=== PATIENT | male | born 1960 | race Caucasian/White ===

== ENCOUNTER 2016-05-26 20:10 | Emergency (ER) | payer SELFPAY ==
[~2016-05-26] VITALS: Ht 188 cm; Wt 98.0 kg
[~2016-05-26 20:10] MED LIST: HYDR7.5T32 OR; LOMO PO; METO5TAB PO; MORP10IN2 PO; ULTR50TA PO
[2016-05-26 20:14] VITALS: BP 117/78; PULSE 82; RESP 20; TEMP 98.4; O2SAT 96
--- NOTE | 2016-05-26 20:44 | PD ---
HPI Chief Complaint: Musculoskeletal Complaint Time Seen by Provider: 20:33 Travel History International Travel<30 days: No Contact w/Intl Traveler<30days: No Traveled to known affect area: No History of Present Illness HPI The patient is a 55-year-old male that complains of right hip pain for a month. It does not hurt to flex, extend or twist his hip, it hurts with weightbearing. He denies any trauma. 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 He says the pain is not just in the hip, and also goes down the femur to the knee. He denies any other pain. [facility] Past Medical History Diminished Hearing: No Social History Alcohol Use: No Tobacco Use: Yes (/ PPD) Substance Use: No Allergies-Medications (Allergen,Severity, Reaction): Coded Allergies: No Known Allergies (Verified , 05/26/16) Reported Meds & Prescriptions Reported Meds & Active Scripts Active No Active Prescriptions or Reported Medications Review of Systems Except as stated in HPI: all other systems reviewed are Neg Physical Exam Narrative GENERAL: The patient is alert, oriented 3 in moderate apparent distress with his hip pain. He is not in any distress at this time, he only has pain with weightbearing. His vital signs are normal. SKIN: Focused skin assessment warm/dry. HEAD: Atraumatic. Normocephalic. EYES: Pupils equal and round. No scleral icterus. No injection or drainage. ENT: No nasal bleeding or discharge. Mucous membranes pink and moist. NECK: Trachea midline. No JVD. CARDIOVASCULAR: Regular rate and rhythm. No murmur appreciated. RESPIRATORY: No accessory muscle use. Clear to auscultation. Breath sounds equal bilaterally. GASTROINTESTINAL: Abdomen soft, non-tender, nondistended. Hepatic and splenic margins not palpable. MUSCULOSKELETAL: No obvious deformities. No clubbing. No cyanosis. No edema. There is no tenderness of the hip. Internal/external rotation, flexion and extension cause no pain. Weightbearing does cause pain. NEUROLOGICAL: Awake and alert. No obvious cranial nerve deficits. Motor grossly within normal limits. Normal speech. PSYCHIATRIC: Appropriate mood and affect; insight and judgment normal. Data Data Last Documented VS Vital Signs Date Time Temp Pulse Resp B/P Pulse Ox O2 Delivery O2 Flow Rate FiO2 05/26/16 20:14 98.4 82 20 117/78 96 Orders Femur (Ap & Lat/2vws) (05/26/16 20:44) Hip, Uni(Ap&Lat) W Ap Pelvis (05/26/16 20:44) Ketorolac Inj (Toradol Inj) (05/26/16 21:45) MDM Medical Decision Making Medical Screen Exam Complete: Yes Emergency Medical Condition: Yes Medical Record Reviewed: Yes Interpretation(s) X-rays of the hip show degenerative changes involving the lower lumbar spine but no acute fracture dislocation. X-rays of the femur show no acute fracture dislocation but do show mild degenerative changes involving the right patellofemoral and femoral tibial joints. Differential Diagnosis Arthritis hip, septic jointhighly unlikely, muscle strain Narrative Course The patient has no fracture but has mild arthritis around the hip joint. Plan: The patient will be given Motrin, 800 mg 3 times daily and the patient will rest and avoid weightbearing. Diagnosis Primary Impression: Right hip pain Additional Impression: Arthritis of right hip Additional Instructions: As we discussed, rest is probably the most important part of the treatment. Motrin should be taken regularly for its anti-inflammatory effect. This is one tablet 3 times daily. Follow-up with your primary care physician. Med/Other Pt SpecificInfo: Prescription(s) given Scripts Ibuprofen 800 Mg Wpl334 Mg PO Q8H #44 TAB Ref 0 Prov:Jacky Evans MD 05/26/16 Disposition: 01 DISCHARGE HOME Condition: Stable Jacky Evans MD May 26, 2016 20:44
--- NOTE | 2016-05-26 21:44 | RADHPO ---
EXAM DATE/TIME: 05/26/2016 20:52 [facility] COMPARISON: No previous studies available for comparison. INDICATIONS : Right femur pain for 1 month with no known injury MEDICAL HISTORY : None. SURGICAL HISTORY : Right total hip replacement ENCOUNTER: Initial ACUITY: 1 month PAIN SCORE: 7/10 LOCATION: Right entire femur FINDINGS: There is no acute fracture or dislocation of the right femur. A right hip replacement has been perfo rmed and the prosthesis is in good position. Mild degenerative changes are noted involving the goode lofemoral and femoral tibial joints. There is cortical irregularity involving the proximal and midsh aft medially consistent with possible periosteal reaction or exostosis. Clinical correlation is nata mmended. CONCLUSION: 1. No acute fracture or dislocation of the right femur. 2. Mild degenerative changes involving the right patellofemoral and femoral tibial joints. 3. Focal cortical irregularity within the proximal to midshaft medially consistent with periosteal r eaction or possible exostosis. Micah Luque MD on May 26, 2016 at 21:38 Board Certified Radiologist. This report was verified electronically.
[2016-05-26] MEDS ORDERED: KETOROLAC TROMETHAMINE 60 MG/2 ML (IM) VIAL IM ONE (21:45)
--- NOTE | 2016-05-26 21:45 | RADHPO ---
EXAM DATE/TIME: 05/26/2016 20:54 [facility] COMPARISON: No previous studies available for comparison. INDICATIONS : Right femur pain for 1 month with no known injury MEDICAL HISTORY : None. SURGICAL HISTORY : Right total hip replacement ENCOUNTER: Initial ACUITY: 1 month PAIN SCORE: 7/10 LOCATION: Right entire hip FINDINGS: The patient is status post right hip replacement with prosthesis in good position. Degenerative vazquez es are noted involving the visualized portion of the lower lumbar spine. There is no acute fracture or dislocation of the pelvis or right hip. CONCLUSION: 1. Degenerative changes involving the lower lumbar spine. 2. No acute fracture or dislocation. Micah Luque MD on May 26, 2016 at 21:41 Board Certified Radiologist. This report was verified electronically.
[2016-05-26] MEDS ORDERED: IBUP800T23 PO (21:57)
[2016-05-26 22:10] VITALS: BP 120/74
== END 2016-05-26 22:11 | disposition home or self-care (01) ==
LOC: PHEFT 20:10
DX: M13.851 Other specified arthritis, right hip (principal); F17.200 Nicotine dependence, unspecified, uncomplicated
CPT/HCPCS: 73502; 73552; 96372; 99283; J1885

== ENCOUNTER 2017-02-17 17:42 | Emergency (ER) | payer SELFPAY ==
[~2017-02-17 17:42] MED LIST changes: -HYDR7.5T32 OR; +IBUP1TAB7 PO; -LOMO PO; -METO5TAB PO; -MORP10IN2 PO; -ULTR50TA PO
[2017-02-17 17:45] VITALS: BP 136/88; PULSE 80; RESP 20; TEMP 99.2
[2017-02-17] MEDS ORDERED: BACT800T5 PO (18:07)
[2017-02-17] MEDS ORDERED: CEPH-460 PO (18:07)
--- NOTE | 2017-02-17 18:12 | PD ---
HPI Chief Complaint: Skin Problem Time Seen by Provider: 17:58 Travel History International Travel<30 days: No Contact w/Intl Traveler<30days: No Traveled to known affect area: No History of Present Illness HPI 56-year-old male presents to the ED for evaluation of approximately 24-hour history of painful reddened area of the posterior right thigh. Patient can identify no acute injury. He states that he noticed it yesterday morning and has gotten worse. He denies fevers, chills, nausea, vomiting, numbness, tingling, weakness, limitation of range of motion of the extremity, history of MRSA. No treatment attempt at home. PFSH Past Medical History Diminished Hearing: No Social History Alcohol Use: No Tobacco Use: No (1/2 PPD) Substance Use: No Allergies-Medications (Allergen,Severity, Reaction): Coded Allergies: No Known Allergies (Verified Allergy, Unknown, 02/17/17) Reported Meds & Prescriptions Reported Meds & Active Scripts Active Keflex (Cephalexin) 500 Mg Cap 500 Mg PO Q6H 7 Days Bactrim DS (Sulfamethoxazole-Trimethoprim) 800-160 Mg Tab 1 Tab PO BID Review of Systems Except as stated in HPI: all other systems reviewed are Neg Physical Exam Narrative GENERAL: Well-nourished, well-developed white male in no acute distress. SKIN: Focused skin assessment warm/dry. Deeply tanned. Tattoos noted. SKIN: There is an indurated area in the right posterior thigh which measures about 2 cm in diameter. It is fluctuant but there is no pointing or drainage. There is a zone of inflammation around it but no lymphangitis. HEAD: Normocephalic. EYES: No scleral icterus. No injection or drainage. NECK: Supple, trachea midline. No JVD or lymphadenopathy. CARDIOVASCULAR: Regular rate and rhythm without murmurs, gallops, or rubs. RESPIRATORY: Breath sounds equal bilaterally. No accessory muscle use. GASTROINTESTINAL: Abdomen soft, non-tender, nondistended. MUSCULOSKELETAL: No cyanosis, or edema. BACK: Nontender without obvious deformity. No CVA tenderness. Data Data Last Documented VS Vital Signs Date Time Temp Pulse Resp B/P (MAP) Pulse Ox O2 Delivery O2 Flow Rate FiO2 02/17/17 17:45 99.2 80 20 136/88 (104) Orders Orders Wound Culture And Gram Stain (02/17/17 18:05) Lidocai-Epi 0.5%-1:200,000 Inj (Xylocain (02/17/17 18:15) Ed Discharge Order (02/17/17 18:30) [facility] Medical Decision Making Medical Screen Exam Complete: Yes Emergency Medical Condition: Yes Differential Diagnosis Folliculitis versus abscess versus cellulitis versus other Narrative Course 56-year-old male presents to the ED for evaluation of approximately 24-hour history of painful reddened area of the posterior right thigh. Patient can identify no acute injury. He states that he noticed it yesterday morning and has gotten worse. Vitals reviewed. Exam consistent with abscess. I&D was performed. See my procedure note for details. Patient prescribed Bactrim and Keflex, given detailed wound care instructions. We discussed reasons to return to the ED. He indicated understanding of instructions and is agreeable a care plan. He is stable and discharged home. Procedures Procedure Narrative INCISION AND DRAINAGE OF ABSCESS: The area was prepped and was sterilely draped. A subcutaneous wheal of 0.5% Xylocaine with epinephrine with a total number 20 mL was used to anesthetize the area properly. A number 11 scalpel was used to make a 0.75-cm incision across the area of the abscess. The abscess was drained, complex loculations were broken down, and irrigated with normal saline. Cultures were obtained. Sterile dressing applied. Patient advised to keep wound clean, dry and covered. Diagnosis Primary Impression: Abscess of right leg Referrals: Primary Care Physician Patient Instructions: Abscess Incision and Drainage (DC), General Instructions Additional Instructions: Keep the dressing on for 24 hours. After that keep the wound clean, dry and covered. Warm compresses applied a couple times a day will help to bring any pus to the surface. DO NOT SQUEEZE THE AREA!! Take antibiotics as prescribed until every pill is gone. Follow up with primary care provider. Return to the ED for worsening symptoms or any urgent or emergent medical condition. Med/Other Pt SpecificInfo: Prescription(s) given Scripts Cephalexin (Keflex) 500 Mg Cap 500 MG PO Q6H for Infection for 7 Days, #28 CAP 0 Refills Prov: Juan A George MD 02/17/17 Sulfamethoxazole-Trimethoprim (Bactrim DS) 800-160 Mg Tab 1 TAB PO BID for Infection, #14 TAB 0 Refills Prov: Juan A George MD 02/17/17 Disposition: 01 DISCHARGE HOME Condition: Stable Hedy Arroyo Feb 17, 2017 18:12
[2017-02-17] MEDS ORDERED: LIDOCAINE 0.5%/EPINEPHrine 1:200,000 SOLN 50 ML VIAL INFIL ONE (18:15)
[2017-02-17] MEDS ORDERED: LIDOCAINE 1%/EPINEPHrine 1:100,000 SOLN 20 ML VIAL INFIL ONE (18:15)
== END 2017-02-17 18:40 | disposition home or self-care (01) ==
LOC: PHEFT 17:42
DX: L02.415 Cutaneous abscess of right lower limb (principal); B95.62 Methicillin resistant Staphylococcus aureus infection as the cause of diseases classified elsewhere; Z16.19 Resistance to other specified beta lactam antibiotics; Z16.11 Resistance to penicillins; Z16.23 Resistance to quinolones and fluoroquinolones
CPT/HCPCS: 10060; 86403; 87070; 87186; 87205

== ENCOUNTER 2017-03-14 16:50 | Emergency (ER) | payer OTHER ==
[~2017-03-14] VITALS: Ht 188 cm; Wt 100.0 kg
[~2017-03-14 16:50] MED LIST changes: +BACT800T5 PO; +CEPH-460 PO; -IBUP1TAB7 PO
[2017-03-14 16:54] VITALS: BP 175/87; PULSE 89; RESP 18; TEMP 99.3; O2SAT 98
[2017-03-14] MEDS ORDERED: SODIUM CHLORIDE 0.9% FLUSH 10 ML FLUSH IV FLUSH PRN (17:15)
[2017-03-14] MEDS ORDERED: MORPHINE SULFATE 4 MG/ML INJ IV PUSH ONE (17:15)
--- NOTE | 2017-03-14 17:20 | PD ---
HPI Chief Complaint: Pain: Acute or Chronic Time Seen by Provider: 17:09 Travel History International Travel<30 days: No Contact w/Intl Traveler<30days: No Traveled to known affect area: No History of Present Illness HPI this is a 56-year-old male presents emergency department for evaluation of right lower extremity numbness and tingling feelings like fell sleep. 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 Denies any weakness but is certainly walking antalgic gait. He is urinated the event is having trouble. Denies any pain in his back. Recent history of an abscess drained from his lateral thigh and has no some redness and swelling coming up on his medial thigh. Denies any previous symptoms in the past denies any fever. States symptoms are severe, context as above, location as above, radiation as above. PFSH Past Medical History Medical History: Denies Significant Hx Diminished Hearing: No Social History Alcohol Use: No Tobacco Use: No (/2 PPD) Substance Use: No Allergies-Medications (Allergen,Severity, Reaction): Coded Allergies: No Known Allergies (Verified Allergy, Unknown, 03/14/17) Reported Meds & Prescriptions Reported Meds & Active Scripts Active Ultram (Tramadol HCl) 50 Mg Tab 50 Mg PO Q6H PRN Doxycycline Hyclate 100 Mg Cap 100 Mg PO BID Review of Systems Except as stated in HPI: all other systems reviewed are Neg Physical Exam Narrative GENERAL: Well-developed well-nourished, appears uncomfortable. SKIN: There is a cellulitis on the medial fine, no discernible abscess appreciated but there is some mild swelling according to patient. Difficult examination secondary to patient cooperation secondary to pain. HEAD: Atraumatic. Normocephalic. EYES: Pupils equal and round. No scleral icterus. No injection or drainage. ENT: No nasal bleeding or discharge. Mucous membranes pink and moist. NECK: Trachea midline. No JVD. CARDIOVASCULAR: Regular rate and rhythm. No murmur appreciated. RESPIRATORY: No accessory muscle use. Clear to auscultation. Breath sounds equal bilaterally. GASTROINTESTINAL: Abdomen soft, non-tender, nondistended. Hepatic and splenic margins not palpable. MUSCULOSKELETAL: No obvious deformities. No clubbing. No cyanosis. No edema. No midline CT or L-spine tenderness, 5 out of 5 strength in extension at the knee, plantar flexion, dorsiflexion of the foot. DTRs are 2+ bilateral equal in bilateral lower extremities at the patella and Achilles. Sensation is intact to light touch over L4 L5 S1 but there is some reported subjective differences between the left and the right. NEUROLOGICAL: Awake and alert. No obvious cranial nerve deficits. Motor grossly within normal limits. Normal speech. PSYCHIATRIC: Appropriate mood and affect; insight and judgment normal. Data Data Last Documented VS Vital Signs Date Time Temp Pulse Resp B/P (MAP) Pulse Ox O2 Delivery O2 Flow Rate FiO2 03/14/17 19:42 74 16 121/61 (81) 99 03/14/17 17:21 Room Air 03/14/17 16:54 99.3 Orders Orders Basic Metabolic Panel (Bmp) (03/14/17 17:15) Complete Blood Count With Diff (03/14/17 17:15) Iv Access Insert/Monitor (03/14/17 17:15) Ecg Monitoring (03/14/17 17:15) Oximetry (03/14/17 17:15) Morphine Inj (Morphine Inj) (03/14/17 17:15) Sodium Chloride 0.9% Flush (Ns Flush) (03/14/17 17:15) Ct Femur W Iv Contrast (03/14/17 ) Ct Lumb Spine W/O Contrast (03/14/17 ) Iohexol 350 Inj (Omnipaque 350 Inj) (03/14/17 18:12) Ed Discharge Order (03/14/17 19:19) Labs Laboratory Tests Test 03/14/17 17:30 White Blood Count 13.0 TH/MM3 Red Blood Count 5.13 MIL/MM3 Hemoglobin 15.3 GM/DL Hematocrit 47.6 % Mean Corpuscular Volume 92.8 FL Mean Corpuscular Hemoglobin 29.8 PG Mean Corpuscular Hemoglobin Concent 32.1 % Red Cell Distribution Width 13.8 % Platelet Count 193 TH/MM3 Mean Platelet Volume 8.9 FL Neutrophils (%) (Auto) 80.0 % Lymphocytes (%) (Auto) 12.3 % Monocytes (%) (Auto) 4.2 % Eosinophils (%) (Auto) 0.9 % Basophils (%) (Auto) 2.6 % Neutrophils # (Auto) 10.5 TH/MM3 Lymphocytes # (Auto) 1.6 TH/MM3 Monocytes # (Auto) 0.5 TH/MM3 Eosinophils # (Auto) 0.1 TH/MM3 Basophils # (Auto) 0.3 TH/MM3 CBC Comment AUTO DIFF Differential Comment AUTO DIFF CONFIRMED Blood Urea Nitrogen 10 MG/DL Creatinine 1.10 MG/DL Random Glucose 83 MG/DL Calcium Level 8.5 MG/DL Sodium Level 136 MEQ/L Potassium Level 3.9 MEQ/L Chloride Level 101 MEQ/L Carbon Dioxide Level 27.5 MEQ/L Anion Gap 8 MEQ/L Estimat Glomerular Filtration Rate 69 ML/MIN MDM Medical Decision Making Medical Screen Exam Complete: Yes Emergency Medical Condition: Yes Differential Diagnosis Cellulitis, abscess, degenerative disc disease, back fracture, slipped disc, sepsis unlikely. Narrative Course Patient roomed in the emergency department, after pain medicine he is feeling much better. Last [address] 03/14/17 0000 Signed Impressions: Service Date/Time: Tuesday, March 14, 2017 17:45 - CONCLUSION: 1. No acute abnormality. 2. Mild scoliosis. 3. Diffuse mild degenerative changes. Dylan Wilkins Jr., MD Lower Extremity CT 03/14/17 0000 Signed Impressions: Service Date/Time: Tuesday, March 14, 2017 17:51 - CONCLUSION: Mild subcutaneous edema involving the posterior medial thigh. Otherwise, no acute abnormality. Dylan Wilkins Jr., MD Labs are reassuring, will place on antibiotics, holding steroids now given acute infection. Discussed may have indications for MRI as an outpatient in the near future. Needs to follow-up the primary care physician, discussed return to ED criteria including red flags for cauda equina syndrome. Discussed symptomatic management. He stable for discharge. Diagnosis Primary Impression: Sciatica Additional Impression: Cellulitis Med/Other Pt SpecificInfo: Prescription(s) given Scripts Tramadol (Ultram) 50 Mg Tab 50 MG PO Q6H Y for PAIN, #15 TAB 0 Refills Prov: Micah Adams MD 03/14/17 Doxycycline Hyclate (Doxycycline Hyclate) 100 Mg Cap 100 MG PO BID for Infection, #20 CAP 0 Refills Prov: Micah Adams MD 03/14/17 Disposition: DISCHARGE HOME Condition: Stable Micah Adams MD Mar 14, 2017 17:20
[2017-03-14 17:21] VITALS: RESP 16; O2SAT 98
[2017-03-14 17:43] LABS: AUTOMATED NEUTROPHIL # 10.5 TH/MM3 (1.8-7.7); BASOPHIL # 0.3 TH/MM3 (0-0.2); BASOPHIL % 2.6 % (0.0-2.0); EOSINOPHIL # 0.1 TH/MM3 (0-0.4); EOSINOPHIL % 0.9 % (0.0-4.0); HEMATOCRIT 47.6 % (39.0-51.0); HEMOGLOBIN 15.3 GM/DL (13.0-17.0); LYMPH % 12.3 % (9.0-44.0); LYMPHOCYTE # 1.6 TH/MM3 (1.0-4.8); MEAN CELL VOLUME 92.8 FL (80.0-100.0); MEAN CORPUSCULAR HEMOGLOBIN 29.8 PG (27.0-34.0); MEAN CORPUSCULAR HGB CONC 32.1 % (32.0-36.0); MEAN PLATELET VOLUME 8.9 FL (7.0-11.0); MONO % 4.2 % (0.0-8.0); MONOCYTE # 0.5 TH/MM3 (0-0.9); PLATELET COUNT 193 TH/MM3 (150-450); RED BLOOD COUNT 5.13 MIL/MM3 (4.50-5.90); RED CELL DISTRIBUTION WIDTH 13.8 % (11.6-17.2)
[2017-03-14 17:48] LABS: BICARBONATE 27.5 MEQ/L (21.0-32.0); CALCIUM 8.5 MG/DL (8.5-10.1)
[2017-03-14 17:52] LABS: CREATININE 1.1 MG/DL (0.60-1.30)
[2017-03-14] MEDS ORDERED: IOHEXOL 350 MG/ML 10 ML VIAL (for RAD DIAG) IVCONTRAST ONE (18:12)
--- NOTE | 2017-03-14 18:22 | RADRPT ---
EXAM DATE/TIME: 03/14/2017 17:51 [facility] COMPARISON: No previous studies available for comparison. INDICATIONS : Sharp pain in right femur with heaviness and numbness feeling. Pain in inner thigh area with redness and swelling. Evaluate for deep abscess. IV CONTRAST: 95 cc Omnipaque 350 (iohexol) IV RADIATION DOSE: 15.63 CTDIvol (mGy) MEDICAL HISTORY : None SURGICAL HISTORY : Right hip repair. ENCOUNTER: Initial ACUITY: 1 day PAIN SCALE: 3/10 LOCATION: Right femur TECHNIQUE: Volumetric scanning of the femur was performed. Using automated exposure control and adjustment of t he mA and/or kV according to patient size, radiation dose was kept as low as reasonably achievable to obtain optimal diagnostic quality images. DICOM format image data is available electronically for review and comparison. FINDINGS: BONES: A right total hip prosthesis in good position. No lucency surrounding the device. Mild enthesopathic changes involving the medial mid femoral diaphysis. No evidence of fracture. Alignment is within nor mal limits. JOINTS: No evidence of joint narrowing or effusion. SOFT TISSUES: Muscles, tendons and neurovascular structures unremarkable. No evidence of mass, organized fluid bhaskar ection, or foreign body. There is mild subcutaneous edema involving the posterior medial thigh. CONCLUSION: Mild subcutaneous edema involving the posterior medial thigh. Otherwise, no acute abnormality. Dylan Wilkins Jr., MD on March 14, 2017 at 18:15 Board Certified Radiologist. This report was verified electronically.
--- NOTE | 2017-03-14 18:34 | RADRPT ---
EXAM DATE/TIME: 03/14/2017 17:45 [facility] COMPARISON: No previous studies available for comparison. INDICATIONS : Sharp pain with heaviness and numbness feeling. RADIATION DOSE: 36.03 CTDIvol (mGy) MEDICAL HISTORY : None SURGICAL HISTORY : right hip repair. ENCOUNTER: Initial ACUITY: 1 day PAIN SCALE: 3/10 LOCATION: spine TECHNIQUE: Volumetric scanning of the lumbar spine was performed. Multiplanar reconstructions in the sagittal, coronal and oblique axial planes were performed. Using automated exposure control and adjustment of the mA and/or kV according to patient size, radiation dose was kept as low as reasonably achievable t o obtain optimal diagnostic quality images. DICOM format image data is available electronically for review and comparison. FINDINGS: VERTEBRAE: Normal vertebral body height. ALIGNMENT: There is a scoliotic curvature with concavity towards the patient's right centered at L2-L3. A 2.6 cm cyst is seen involving the upper pole of the right kidney. Calcified plaque involving the ab dominal aorta. T12-L1: There is disc space narrowing and broad-based disc osteophyte complex. No central canal stenosis. Gladys ral foramina are patent. L1-L2: There is disc space narrowing and broad-based disc osteophyte complex. No central canal stenosis. Gladys ral foramina are patent. L2-L3: There is disc space narrowing and broad-based disc osteophyte complex. No central canal stenosis. Gladys ral foramina are patent. L3-L4: There is disc space narrowing and broad-based disc osteophyte complex. No central canal stenosis. Gladys ral foramina are patent. L4-L5: There is disc space narrowing with a right paracentral disc protrusion. This narrows the right latera l recess slightly. No central canal stenosis. Narrowing of the neural foramina bilaterally partly due to bony hypertrophy of the facets. L5-S1: There is disc space narrowing with a central bulge. No central canal stenosis or lateral recess encro achment. Narrowing of the neural foramina bilaterally partly due to bony hypertrophy of the facets CONCLUSION: 1. No acute abnormality. 2. Mild scoliosis. 3. Diffuse mild degenerative changes. Dylan Wilkins Jr., MD on March 14, 2017 at 18:26 Board Certified Radiologist. This report was verified electronically.
[2017-03-14] MEDS ORDERED: TRAM50 PO (19:18)
[2017-03-14] MEDS ORDERED: DOXY100C PO (19:18)
[2017-03-14 19:42] VITALS: BP 121/61
[2017-03-20] MEDS ORDERED: CLIN300C5 PO (18:18)
== END 2017-03-14 19:44 | disposition home or self-care (01) ==
LOC: PHED 16:50
DX: M54.30 Sciatica, unspecified side (principal); L03.90 Cellulitis, unspecified; F17.210 Nicotine dependence, cigarettes, uncomplicated; X50.9XXA Other and unspecified overexertion or strenuous movements or postures, initial encounter
CPT/HCPCS: 72131; 73701; 80048; 85025; 96374; 99285; J2270; Q9967

== ENCOUNTER 2017-03-20 17:46 | Emergency (ER) | payer OTHER | END 2017-03-20 18:21 | disposition home or self-care (01) | LOC: PHEFT 17:46 | DX: L02.415 Cutaneous abscess of right lower limb (principal) | CPT/HCPCS: 10060; 99283-25 ==

== ENCOUNTER 2017-04-04 20:34 | Emergency (ER) | payer OTHER ==
[~2017-04-04 20:34] MED LIST changes: -BACT800T5 PO; -CEPH-460 PO; +CLIN300C5 PO; +DOXY100C PO
[2017-04-04 22:22] VITALS: BP 140/81; PULSE 83; RESP 20; TEMP 99.3; O2SAT 98
[2017-04-04] MEDS ORDERED: VANCOMYCIN INJ 1,500 MG in SODIUM CHLORID 0.9% 500 ML INJ 500 ML IV ONE (23:00)
[2017-04-04] MEDS ORDERED: KETOROLAC TROMETHAMINE 30 MG/ML (IVP) VIAL IV PUSH ONE (23:00)
--- NOTE | 2017-04-04 23:03 | PD ---
HPI Chief Complaint: Skin Problem Time Seen by Provider: 22:49 Travel History International Travel<30 days: No Contact w/Intl Traveler<30days: No Traveled to known affect area: No History of Present Illness HPI 56yo M with no significant PMH presents to the ED with c/o right posterior thigh pain. Pt has had multiple abscess in this area and has been seen in the ED multiple times for this. He said that the redness is getting worse and pain has not improved. Pt was last seen here 03/20/17 and had I&D completed and discharged with clindamycin for 7 days. Pt said he finished 2 days ago. Pt also had I&D and discharge with keflex and bactrim on 02/17/17. Pt denies any fever, trauma, chest pain, sob, n/v, abdominal pain, focal weakness or numbness. 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 PFSH Past Medical History Diminished Hearing: No Social History Alcohol Use: No Tobacco Use: No (/2 PPD) Substance Use: No Allergies-Medications (Allergen,Severity, Reaction): Coded Allergies: No Known Allergies (Verified Allergy, Unknown, 03/20/17) Reported Meds & Prescriptions Reported Meds & Active Scripts Active Clindamycin (Clindamycin HCl) 300 Mg Cap 300 Mg PO Q6H 7 Days Doxycycline Hyclate 100 Mg Cap 100 Mg PO BID Review of Systems Except as stated in HPI: all other systems reviewed are Neg Physical Exam Narrative GENERAL: 56yo M in mild distress. SKIN: Focused skin assessment warm/dry. HEAD: Atraumatic. Normocephalic. EYES: Pupils equal and round. No scleral icterus. No injection or drainage. ENT: No nasal bleeding or discharge. Mucous membranes pink and moist. NECK: Trachea midline. No JVD. CARDIOVASCULAR: Regular rate and rhythm. No murmur appreciated. RESPIRATORY: No accessory muscle use. Clear to auscultation. Breath sounds equal bilaterally. GASTROINTESTINAL: Abdomen soft, non-tender, nondistended. MUSCULOSKELETAL: Right posterior thigh erythema 18cm by 15cm with central induration. No fluctuance yet. NEUROLOGICAL: Awake and alert. No obvious cranial nerve deficits. Motor grossly within normal limits. Normal speech. PSYCHIATRIC: Appropriate mood and affect; insight and judgment normal. Data Data Last Documented VS Vital Signs Date Time Temp Pulse Resp B/P (MAP) Pulse Ox O2 Delivery O2 Flow Rate FiO2 04/04/17 22:22 99.3 83 20 140/81 (100) 98 Orders Orders Complete Blood Count With Diff (04/04/17 22:55) Basic Metabolic Panel (Bmp) (04/04/17 22:55) Lactic Acid Sepsis Protocol (04/04/17 22:55) Prothrombin Time / Inr (Pt) (04/04/17 22:55) Act Partial Throm Time (Ptt) (04/04/17 22:55) Blood Culture (04/04/17 22:55) Ketorolac Inj (Toradol Inj) (04/04/17 23:00) Vancomycin Inj (Vancomycin Inj) (04/04/17 23:00) Morphine Inj (Morphine Inj) (04/05/17 00:15) Labs Laboratory Tests Test 04/04/17 23:25 White Blood Count 8.3 TH/MM3 Red Blood Count 4.57 MIL/MM3 Hemoglobin 14.1 GM/DL Hematocrit 41.6 % Mean Corpuscular Volume 91.2 FL Mean Corpuscular Hemoglobin 30.8 PG Mean Corpuscular Hemoglobin Concent 33.8 % Red Cell Distribution Width 13.6 % Platelet Count 211 TH/MM3 Mean Platelet Volume 9.0 FL Neutrophils (%) (Auto) 64.0 % Lymphocytes (%) (Auto) 23.0 % Monocytes (%) (Auto) 6.1 % Eosinophils (%) (Auto) 3.5 % Basophils (%) (Auto) 3.4 % Neutrophils # (Auto) 5.3 TH/MM3 Lymphocytes # (Auto) 1.9 TH/MM3 Monocytes # (Auto) 0.5 TH/MM3 Eosinophils # (Auto) 0.3 TH/MM3 Basophils # (Auto) 0.3 TH/MM3 CBC Comment DIFF FINAL Differential Comment Prothrombin Time 10.8 SEC Prothromb Time International Ratio 1.1 RATIO Activated Partial Thromboplast Time 25.5 SEC Blood Urea Nitrogen 12 MG/DL Creatinine 1.00 MG/DL Random Glucose 102 MG/DL Calcium Level 8.4 MG/DL Sodium Level 139 MEQ/L Potassium Level 4.0 MEQ/L Chloride Level 106 MEQ/L Carbon Dioxide Level 28.1 MEQ/L Anion Gap 5 MEQ/L Estimat Glomerular Filtration Rate 77 ML/MIN Lactic Acid Level 0.7 mmol/L MDM Medical Decision Making Medical Screen Exam Complete: Yes Emergency Medical Condition: Yes Differential Diagnosis Cellulitis vs. recurrent abscess Narrative Course 56yo M with right posterior thigh redness and recurrent abscess. The abscess is not ready to be I&D today yet. There is induration but no fluctuance yet. Pt is nontoxic appearing and has no fever or vomiting. No system complaints. Vital signs normal. Labs reviewed, no leukocytosis. Lactic acid normal at 0.7. BMP unremarkable. Pt given vancomycin IV. Pt given toradol and morphine with improvement of pain. I marked the area of erythema and instructed pt to return in 2 days if symptoms worsen. Pt to follow up with primary care physician in 1-2 days. Diagnosis Primary Impression: Cellulitis of right leg Patient Instructions: General Instructions Departure Forms: Tests/Procedures Additional Instructions: Please follow up with your primary care physician in 1-2 days. Return to the ED if symptoms worsen. Med/Other Pt SpecificInfo: Prescription(s) given Scripts Acetaminophen (Tylenol) 325 Mg Tab 650 MG PO Q6H Y for PAIN SCALE 1 TO 4, #20 TAB 0 Refills Prov: Carolyne Hayden DO 04/05/17 Doxycycline Hyclate (Doxycycline Hyclate) 100 Mg Cap 100 MG PO BID for Infection, #20 CAP 0 Refills Prov: Carolyne Hayden DO 04/05/17 Sulfamethoxazole-Trimethoprim (Bactrim DS) 800-160 Mg Tab 1 TAB PO BID for Infection, #14 TAB 0 Refills Prov: Carolyne Hayden DO 04/05/17 Disposition: 01 DISCHARGE HOME Condition: Stable Carolyne Hayden DO Apr 04, 2017 23:03
[2017-04-04 23:34] LABS: AUTOMATED NEUTROPHIL # 5.3 TH/MM3 (1.8-7.7); BASOPHIL # 0.3 TH/MM3 (0-0.2); BASOPHIL % 3.4 % (0.0-2.0); EOSINOPHIL # 0.3 TH/MM3 (0-0.4); EOSINOPHIL % 3.5 % (0.0-4.0); HEMATOCRIT 41.6 % (39.0-51.0); HEMOGLOBIN 14.1 GM/DL (13.0-17.0); LYMPHOCYTE # 1.9 TH/MM3 (1.0-4.8); MEAN CELL VOLUME 91.2 FL (80.0-100.0); MEAN CORPUSCULAR HEMOGLOBIN 30.8 PG (27.0-34.0); MEAN CORPUSCULAR HGB CONC 33.8 % (32.0-36.0); MONO % 6.1 % (0.0-8.0); MONOCYTE # 0.5 TH/MM3 (0-0.9); PLATELET COUNT 211 TH/MM3 (150-450); RED BLOOD COUNT 4.57 MIL/MM3 (4.50-5.90); RED CELL DISTRIBUTION WIDTH 13.6 % (11.6-17.2); WHITE BLOOD COUNT 8.3 TH/MM3 (4.0-11.0)
[2017-04-04 23:43] LABS: CALCIUM 8.4 MG/DL (8.5-10.1); INTERNATIONAL NORMALIZED RATIO 1.1 RATIO; PROTHROMBIN TIME - PATIENT 10.8 SEC (9.8-11.6)
[2017-04-04 23:44] LABS: BICARBONATE 28.1 MEQ/L (21.0-32.0)
[2017-04-05] MEDS ORDERED: TYLE325T PO (00:14)
[2017-04-05] MEDS ORDERED: DOXY100C PO (00:14)
[2017-04-05] MEDS ORDERED: BACT800T5 PO (00:14)
[2017-04-05 00:15] VITALS: BP 131/66; PULSE 65; RESP 18; TEMP 98.2; O2SAT 95
[2017-04-05] MEDS ORDERED: MORPHINE SULFATE 2 MG/ML INJ IV PUSH ONE (00:15)
[2017-04-05 01:15] VITALS: BP 111/68; PULSE 64; RESP 16; O2SAT 95
[2017-04-05 02:44] VITALS: BP 128/88; TEMP 98.4
== END 2017-04-05 02:51 | disposition home or self-care (01) ==
LOC: PHED 20:34
DX: L03.115 Cellulitis of right lower limb (principal); F17.210 Nicotine dependence, cigarettes, uncomplicated
CPT/HCPCS: 80048; 83605; 85025; 85610; 85730; 87040; 96365; 96366; 96375; 99283; J1885; J2270; J3370; J7040

== ENCOUNTER 2017-04-07 16:09 | Emergency (ER) | payer OTHER ==
[~2017-04-07] VITALS: Ht 188 cm; Wt 98.0 kg
[~2017-04-07 16:09] MED LIST changes: +BACT800T5 PO; +TYLE325T PO
[2017-04-07 16:17] VITALS: BP 150/81; PULSE 79; RESP 16; TEMP 99.1; O2SAT 97
[2017-04-07] MEDS ORDERED: LIDOCAINE 1%/EPINEPHrine 1:100,000 SOLN 20 ML VIAL INFIL ONE (16:45)
[2017-04-07] MEDS ORDERED: KETOROLAC TROMETHAMINE 60 MG/2 ML (IM) VIAL IM ONE (16:45)
[2017-04-07] MEDS ORDERED: LIDOCAINE 1%/EPINEPHrine 1:100,000 SOLN 30 ML VIAL ONE (16:45)
[2017-04-07] MEDS ORDERED: ACETAMINOPHEN/HYDROcodone 325 MG/5 MG TAB PO ONE (16:45)
[2017-04-07] MEDS ORDERED: TRAM50 PO (17:42)
[2017-04-07] MEDS ORDERED: BACT800T5 PO (17:42)
--- NOTE | 2017-04-07 17:42 | PD ---
HPI Chief Complaint: Skin Problem Time Seen by Provider: 16:36 Travel History International Travel<30 days: No Contact w/Intl Traveler<30days: No Traveled to known affect area: No History of Present Illness HPI 56-year-old male here with abscess to the right posterior thigh. Patient is currently on doxycycline and clindamycin. He denies fever or chills. He was seen several days ago and diagnosed with cellulitis. He was instructed to apply warm compresses and return in several days for possible I&D. Symptom severity is moderate. It aggravated by palpation of the area. Alleviated by OTC Tylenol and ibuprofen. PFSH Past Medical History Medical History: Denies Significant Hx Diminished Hearing: No ?: Not Social History Alcohol Use: No Tobacco Use: No Substance Use: No Allergies-Medications (Allergen,Severity, Reaction): Coded Allergies: No Known Allergies (Verified Allergy, Unknown, 04/07/17) Reported Meds & Prescriptions Reported Meds & Active Scripts Active Bactroban Nasal Oint (Mupirocin Nasal Oint) 2% Oint 1 Applic EACH NARE BID For 5 days. Bactrim DS (Sulfamethoxazole-Trimethoprim) 800-160 Mg Tab 1 Tab PO BID Ultram (Tramadol HCl) 50 Mg Tab 50 Mg PO Q6H PRN Tylenol (Acetaminophen) 325 Mg Tab 650 Mg PO Q6H PRN Doxycycline Hyclate 100 Mg Cap 100 Mg PO BID Bactrim DS (Sulfamethoxazole-Trimethoprim) 800-160 Mg Tab 1 Tab PO BID Clindamycin (Clindamycin HCl) 300 Mg Cap 300 Mg PO Q6H 7 Days Doxycycline Hyclate 100 Mg Cap 100 Mg PO BID Review of Systems Except as stated in HPI: all other systems reviewed are Neg General / Constitutional: No: Fever Physical Exam Narrative GENERAL: Alert and well-appearing 56-year-old male SKIN: Warm and dry. 3.5x3.5cm fluctuant abscess to the right posterior thigh. There is surrounding erythema which is well within the markers that were previously drawn around the cellulitis at his prior visit. HEAD: Normocephalic. EYES: No injection or drainage. NECK: Supple MUSCULOSKELETAL: No cyanosis, or edema. See skin noted above Data Data Last Documented VS Vital Signs Date Time Temp Pulse Resp B/P (MAP) Pulse Ox O2 Delivery O2 Flow Rate FiO2 04/07/17 16:17 99.1 79 16 150/81 (104) 97 Orders Orders Ketorolac Inj (Toradol Inj) (04/07/17 16:45) Acetamin-Hydrocod 325-5 Mg ([place] 5-325 (04/07/17 16:45) Lidocai-Epi 1%-1:100,000 Inj (Xylocaine- (04/07/17 16:45) Lidocai-Epi 1%-1:100,000 Inj (Xylocaine- (04/07/17 16:45) Ed Discharge Order (04/07/17 17:42) [facility] Medical Decision Making Medical Screen Exam Complete: Yes Emergency Medical Condition: Yes Differential Diagnosis Abscess, cellulitis, outpatient treatment failure Narrative Course 56-year-old male here with abscess to the right posterior thigh. Patient is currently on doxycycline and clindamycin. He denies fever or chills. He is nontoxic appearing. He has a large abscess with central fluctuance which was incised and drained at today's visit. He was instructed to return in 2 days for packing removal. Procedures Procedure Narrative INCISION AND DRAINAGE OF ABSCESS: The area was prepped and was sterilely draped. A subcutaneous wheal of 1 % Xylocaine was used to anesthetize the area properly. A number [11] scalpel was used to make a 0.75 -cm incision across the area of the abscess. The abscess was drained, complex loculations were broken down, and irrigated with normal saline. Quarter inch iodoform packing was placed in the wound. Sterile dressing applied. Patient advised to have packing removed in two days. Diagnosis Primary Impression: Abscess Referrals: Primary Care Physician Additional Instructions: Continue antibiotics Packing needs to be removed in 2 days. Change the outside dressing daily. Return if you develop fever, chills, increasing pain or redness. Scripts Mupirocin Nasal Oint (Bactroban Nasal Oint) 2% Oint 1 APPLIC EACH NARE BID for Mgmt Bacterial Infection, #1 TUBE 0 Refills For 5 days. Prov: Trinidad Graves [employer]ARDENING [employer]STRUCTOR 04/07/17 Sulfamethoxazole-Trimethoprim (Bactrim DS) 800-160 Mg Tab 1 TAB PO BID for Infection, #6 TAB 0 Refills Prov: Trinidad Graves GARDENING INSTRUCTOR 04/07/17 Tramadol (Ultram) 50 Mg Tab 50 MG PO Q6H Y for PAIN, #12 TAB 0 Refills Prov: Trinidad Graves 04/07/17 Disposition: 01 DISCHARGE HOME Condition: Stable Trinidad Graves Apr 07, 2017 17:42
[2017-04-07] MEDS ORDERED: BACTOIN EACH NARE (17:44)
== END 2017-04-07 17:54 | disposition home or self-care (01) ==
LOC: PHEFT 16:09
DX: L02.415 Cutaneous abscess of right lower limb (principal)
CPT/HCPCS: 10061; 99283; J1885

== ENCOUNTER 2017-04-10 10:09 | Emergency (ER) | payer OTHER ==
[~2017-04-10] VITALS: Ht 188 cm; Wt 96.0 kg
[~2017-04-10 10:09] MED LIST changes: +BACTOIN EACH NARE; +TRAM50 PO
[2017-04-10 10:14] VITALS: BP 141/76; PULSE 81; RESP 16; TEMP 98.4; O2SAT 97
--- NOTE | 2017-04-10 10:24 | PD ---
HPI Chief Complaint: Wound/Suture/Staple Re-Check Time Seen by Provider: 10:17 Travel History International Travel<30 days: No Contact w/Intl Traveler<30days: No Traveled to known affect area: No History of Present Illness HPI 56-year-old male presents to the emergency department for for evaluation of an abscess to his right posterior thigh. Patient was here 3 days ago and had incision and drainage. He has been taking his antibiotics. He states he went to remove the packing today, but could not find it and became concerned. Patient denies any worsening symptoms. He states as long as he is not passing with the abscess, his pain is 0/10. He reports decreasing redness. Moderate severity. No alleviating factors. PFSH Past Medical History Diminished Hearing: No Social History Alcohol Use: No Tobacco Use: No Substance Use: No Allergies-Medications (Allergen,Severity, Reaction): Coded Allergies: No Known Allergies (Verified Allergy, Unknown, 04/10/17) Reported Meds & Prescriptions Reported Meds & Active Scripts Active Bactroban Nasal Oint (Mupirocin Nasal Oint) 2% Oint 1 Applic EACH NARE BID For 5 days. Bactrim DS (Sulfamethoxazole-Trimethoprim) 800-160 Mg Tab 1 Tab PO BID Ultram (Tramadol HCl) 50 Mg Tab 50 Mg PO Q6H PRN Tylenol (Acetaminophen) 325 Mg Tab 650 Mg PO Q6H PRN Clindamycin (Clindamycin HCl) 300 Mg Cap 300 Mg PO Q6H 7 Days Doxycycline Hyclate 100 Mg Cap 100 Mg PO BID Review of Systems Except as stated in HPI: all other systems reviewed are Neg Physical Exam Narrative GENERAL: Well-nourished, well-developed male patient, ambulatory. Afebrile. SKIN: Focused skin assessment warm/dry. Patient has abscess, status post incision and drainage to right posterior thigh with very mild surrounding erythema. No active drainage. I prodded the incision and was unable to locate any packing. It appears the packing has fallen on on its own. HEAD: Normocephalic. Atraumatic. EYES: No scleral icterus. No injection or drainage. NECK: Supple, trachea midline. No JVD or lymphadenopathy. MUSCULOSKELETAL: No cyanosis, or edema. Data Data Last Documented VS Vital Signs Date Time Temp Pulse Resp B/P (MAP) Pulse Ox O2 Delivery O2 Flow Rate FiO2 04/10/17 10:14 98.4 81 16 141/76 (97) 97 Orders Orders Ed Discharge Order (04/10/17 10:24) MDM Medical Decision Making Medical Screen Exam Complete: Yes Emergency Medical Condition: Yes Medical Record Reviewed: Yes Differential Diagnosis Abscess recheck versus cellulitis versus failed outpatient treatment Narrative Course 56-year-old male presents to the emergency department for evaluation of abscess. He was to fall on his packing today, but cannot find any packing when he went to pull it out. On my exam, I provided the incision with forceps and was unable to locate any packing. It appears the packing has fallen out on its own. The abscess was cleaned and Telfa dressing is applied. Patient is instructed to continue antibiotics and wound care. He is return for any worsening symptoms. The patient was discharged in stable condition with instructions, including return instructions and follow up instructions. Diagnosis Primary Impression: Abscess re-check Referrals: Primary Care Physician call for appointment Patient Instructions: Abscess Follow-up (ED), General Instructions Additional Instructions: Continue antibiotics as directed until gone. Clean twice daily with soap and water and apply over the counter antibiotic ointment. Keep clean and dry. Follow-up with your primary care physician. Return to the emergency department for any acute worsening of symptoms. Med/Other Pt SpecificInfo: No Change to Meds Disposition: 01 DISCHARGE HOME Condition: Stable Leann Espinoza Apr 10, 2017 10:24
== END 2017-04-10 10:30 | disposition home or self-care (01) ==
LOC: PHEFT 10:09
DX: Z48.817 Encounter for surgical aftercare following surgery on the skin and subcutaneous tissue (principal)
CPT/HCPCS: 99281

== ENCOUNTER 2017-06-08 18:30 | Emergency (ER) | payer OTHER ==
[~2017-06-08] VITALS: Ht 188 cm; Wt 99.0 kg
[2017-06-08 18:32] VITALS: BP 163/89; PULSE 88; RESP 18; TEMP 98.7; O2SAT 96
[2017-06-08] MEDS ORDERED: ACETAMINOPHEN/HYDROcodone 325 MG/5 MG TAB PO ONE (19:00)
--- NOTE | 2017-06-08 19:08 | PD ---
HPI Chief Complaint: Skin Problem Time Seen by Provider: 18:47 Travel History International Travel<30 days: No Contact w/Intl Traveler<30days: No Traveled to known affect area: No History of Present Illness HPI 57-year-old male presents emergency department for evaluation of an abscess to the left axilla that has been present for approximately 1 week. Says that over the last couple days has become excruciatingly painful and decided to come to the emergency department today. Says he had 3 abscesses over the last 3 months of his right leg that required treatment. Patient denies history of IV drug use or other illicit drug use. Denies any chronic medical issues except for left shoulder rotator cuff problem. He denies chronic medication use. He denies fevers chills. He has no other complaints today. PFSH Past Medical History Diminished Hearing: No Social History Alcohol Use: No Tobacco Use: No Substance Use: No Allergies-Medications (Allergen,Severity, Reaction): Coded Allergies: No Known Allergies (Verified Allergy, Unknown, 06/08/17) Reported Meds & Prescriptions Reported Meds & Active Scripts Active No Active Prescriptions or Reported Medications Review of Systems Except as stated in HPI: all other systems reviewed are Neg Physical Exam Narrative GENERAL: Well-nourished, well-developed patient. SKIN: Focused skin assessment warm/dry. Left axilla with a 1.5 cm x 1 cm round area of induration with central fluctuance. Mild surrounding erythema without evidence of lymph angiopathic spread. HEAD: Normocephalic. EYES: No scleral icterus. No injection or drainage. NECK: Supple, trachea midline. No JVD or lymphadenopathy. CARDIOVASCULAR: Regular rate and rhythm without murmurs, gallops, or rubs. RESPIRATORY: Breath sounds equal bilaterally. No accessory muscle use. GASTROINTESTINAL: Abdomen soft, non-tender, nondistended. MUSCULOSKELETAL: No cyanosis, or edema. Difficulty moving left shoulder secondary to rotator cuff injury as patient described. BACK: Nontender without obvious deformity. No CVA tenderness. Data Data Last Documented VS Vital Signs Date Time Temp Pulse Resp B/P (MAP) Pulse Ox O2 Delivery O2 Flow Rate FiO2 06/08/17 18:32 98.7 88 18 163/89 (113) 96 Orders Orders Acetamin-Hydrocod 325-5 Mg ([place] 5-325 (06/08/17 19:00) Wound Culture And Gram Stain (06/08/17 19:38) [facility] Medical Decision Making Medical Screen Exam Complete: Yes Emergency Medical Condition: Yes Differential Diagnosis Abscess, cellulitis, erysipelas, hidradenitis suppurativa Narrative Course 57-year-old male presents emergency department evaluation of an abscess to the left axilla. Says he has a history of these in the last 3 months and does not know why he keeps getting these. Vital signs are stable. Physical exam findings consistent with an abscess to the left axilla. Hydrocodone for pain while in the emergency department today. Incision and drainage performed to the left axilla. Wound culture obtained. After review of the EMR appears that patient had MRSA grow from his previous abscess. There was sensitivity to Bactrim. Patient will have Bactrim for outpatient antibiotic use. He is advised to follow-up with his primary care physician in 1-2 days for wound check. Advised to return if he is unable to see his primary care for wound check. Advised to monitor for signs of infection which include fever, chills increased swelling or pain. Patient should return to the emergency department worsening or persistent symptoms. Procedures Procedure Narrative INCISION AND DRAINAGE OF ABSCESS: The area was prepped and was sterilely draped. A subcutaneous wheal of 2 % Xylocaine without epinephrine with a total number 1 mL was used to anesthetize the area properly. A number 11 scalpel was used to make a 0.5-cm incision across the area of the abscess. The abscess was drained, complex loculations were broken down, and irrigated with normal saline. Cultures were obtained. Half inch iodoform packing was placed in the wound. Sterile dressing applied. Patient advised to have packing removed in two days. Diagnosis Primary Impression: Abscess Referrals: Primary Care Physician Departure Forms: Tests/Procedures, Work Release Enter return to work date: Jun 10, 2017 Special Instructions: Light duty for 2 days until wound checked. Additional Instructions: Follow up with your primary care physician within 2 days for wound check. If you are unable to follow up with them, return to the ED for reevaluation Keep area clean and dry for 24 hrs. You may bathe as normal after 24 hrs. You may use [id number] triple antibiotic ointments for your injury daily. Change dressings daily. If he developed increased redness, swelling, or pain return to the emergency department. Scripts No Active Prescriptions or Reported Meds Disposition: 01 DISCHARGE HOME Condition: Stable Marika Goldberg Jun 08, 2017 19:08
[2017-06-08] MEDS ORDERED: BACT800T5 PO (19:39)
== END 2017-06-08 20:00 | disposition home or self-care (01) ==
LOC: PHEFT 18:30
DX: L02.412 Cutaneous abscess of left axilla (principal); B95.62 Methicillin resistant Staphylococcus aureus infection as the cause of diseases classified elsewhere
CPT/HCPCS: 10061; 86403; 87070; 87186; 87205

== ENCOUNTER 2017-12-08 19:12 | Inpatient (IN) ==
[2017-12-08] MEDS ORDERED: Ketorolac Inj 30 MG/ML (IVP) Vial IV.PUSH ONE (19:32)
[2017-12-08] MEDS ORDERED: Vancomycin Inj 1,750 MG in Sodium Chlor 0.9% Inj 500 ML IV.SIG ONE (19:32)
--- NOTE | 2017-12-08 19:32 | ED ---
HPI General Chief complaint: Skin/Abscess/Foreign Body Stated complaint: L knee pain Time Seen by Provider: 12/08/17 19:24 Source: patient Mode of arrival: ambulatory Limitations: no limitations History of Present Illness HPI narrative: Patient presents with increased discomfort to left knee and foreleg. Onset 3 days ago increasing in severity. Questionable chills prior to arrival. 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 Generally good health Related Data Home Medications Medication Instructions Recorded Confirmed No Known Home Medications 12/08/17 12/08/17 Allergies Allergy/AdvReac Type Severity Reaction Status Date / Time No Known Allergies Allergy Verified 12/08/17 19:14 Review of Systems ROS: all other systems reviewed are negative [facility] Social History Social History Second Hand Smoke Exposure: No Smoking Status: Never smoker How Often Do You Have a Drink Containing Alcohol: Never Recent Travel in [facility] within the Last 8 Weeks: No Recent Out of Country Travel within the Last 8 Weeks: No Exam Narrative Exam Narrative: GENERAL: Alert and oriented with pain to left lower extremity. SKIN: Focused skin assessment warm/dry. HEAD: Atraumatic. Normocephalic. EYES: Pupils equal and round. No scleral icterus. No injection or drainage. ENT: No nasal bleeding or discharge. Mucous membranes pink and moist. NECK: Trachea midline. No JVD. CARDIOVASCULAR: Regular rate and rhythm. No murmur appreciated. RESPIRATORY: No accessory muscle use. Clear to auscultation. Breath sounds equal bilaterally. GASTROINTESTINAL: Abdomen soft, non-tender, nondistended. Hepatic and splenic margins not palpable. MUSCULOSKELETAL: Patient presents with significant swelling and erythema to knee and proximal foreleg on left. Patient has history of MRSA on multiple occasions. Patient has abrasion/scab to left knee. Patient has tenderness right inguinal node with enlargement. NEUROLOGICAL: Awake and alert. No obvious cranial nerve deficits. Motor grossly within normal limits. Normal speech. PSYCHIATRIC: Appropriate mood and affect; insight and judgment normal. Course Reevaluation(s) Reevaluation #1: Patient improved. No evidence of chills or fever. No evidence of abscess in ultrasound. Time: 22:05 Initial Documented Vital Signs Temperature 100.2 F H 12/08/17 19:14 Pulse Rate 100 H 12/08/17 19:14 Blood Pressure 143/76 H 12/08/17 19:14 Pulse Oximetry 95 12/08/17 19:14 Last Documented Vital Signs Temperature 100.2 F H 12/08/17 19:14 Pulse Rate 100 H 12/08/17 19:14 Blood Pressure 143/76 H 12/08/17 19:14 Pulse Oximetry 95 12/08/17 19:14 Critical Care Time Critical Care Time: No Medical Decision Making MDM Narrative Medical decision making narrative: Patient presents with red swollen knee and left foreleg consistent with cellulitis. No evidence of abscess. Patient has history of MRSA. And also has lymphangitis with tender left inguinal node. No fluid in joint space. However scab will be removed and culture completed from scab area. Medical Screen Exam Complete: Yes Emergency Medical Condition: Yes Lab Data Result diagrams: 12/08/17 19:50 12/08/17 19:50 Lab Results 12/08/17 12/08/17 12/08/17 Range/Units 19:50 19:50 19:50 CBC w Diff Auto diff final WBC 10.9 (4.0-11.0) th/mm3 RBC 4.74 (4.50-5.90) mil/mm3 Hgb 15.1 (13.0-17.0) gm/dL Hct 45.5 (39.0-51.0) % MCV 95.9 (80.0-100.0) fL MCH 31.9 (27.0-34.0) pg MCHC 33.3 (32.0-36.0) % RDW 12.6 (11.6-17.2) % Plt Count 120 L (150-450) th/mm3 MPV 11.2 H (7.0-11.0) fL Neut % (Auto) 76.5 H (16.0-70.0) % Lymph % (Auto) 15.7 (9.0-44.0) % [place] % (Auto) 5.1 (0.0-8.0) % Eos % (Auto) 1.0 (0.0-4.0) % Baso % (Auto) 1.7 (0.0-2.0) % Neut # (Auto) 8.3 H (1.8-7.7) th/mm3 Lymph # (Auto) 1.7 (1.0-4.8) th/mm3 [place] # (Auto) 0.6 (0.0-0.9) th/mm3 Eos # (Auto) 0.1 (0.0-0.4) th/mm3 Baso # (Auto) 0.2 (0.0-0.2) th/mm3 WBC Differential . Differential Comment . Sodium 135 L (136-145) meq/L Potassium 3.7 (3.5-5.1) meq/L Chloride 100 (98-107) meq/L Carbon Dioxide 25.1 (21.0-32.0) meq/L Anion Gap 10 (5-15) meq/L BUN 14 (7-18) mg/dL Creatinine 0.98 (0.60-1.30) mg/dL Estimated GFR 78 L (>89) mL/min Random Glucose 130 H (74-106) mg/dL Lactic Acid 0.7 (0.4-2.0) mmol/L Calcium 8.0 L (8.5-10.1) mg/dL Total Bilirubin 0.8 (0.2-1.0) mg/dL AST 44 H (15-37) U/L ALT 65 (12-78) U/L Alkaline Phosphatase 69 (45-117) U/L Total Protein 7.2 (6.4-8.2) g/dL Albumin 3.5 (3.4-5.0) g/dL Imaging Data Radiologist's impression: Chest X-Ray 12/08/17 19:32 CONCLUSION: No acute cardiopulmonary process. Lower Extremity Ultrasound 12/08/17 19:32 CONCLUSION: Superficial edema. Discharge Plan Discharge Disposition Patient Disposition: 30 Still Patient Physicians Team ED Provider: Francisco Verduzco Primary Care Provider: Kaz Charles Rxs /Orders / Referrals /Forms Prescriptions: No Action No Known Home Medications RF: 0 Status ED Status: With Doctor
--- NOTE | 2017-12-08 20:20 | XR ---
EXAM DATE: 12/08/2017 7:32 PM EDT AGE/SEX: 57 years / Male INDICATIONS: Fever. CLINICAL DATA: This is the patient's initial encounter. Patient reports that signs and symptoms have been present for 1 day and indicates a pain score of 0/10. MEDICAL/SURGICAL HISTORY: . MRSA. None. COMPARISON: No prior exams available for comparison. FINDINGS: A single AP view of the chest demonstrates the lungs to be symmetrically aerated without evidence of mass, infiltrate or effusion. The cardiomediastinal contours are unremarkable. Osseous structures a re intact. CONCLUSION: No acute cardiopulmonary process. Electronically signed by: Eliezer Castro MD 12/08/2017 8:18 PM EDT
[2017-12-08] MEDS: Vancomycin Inj 1,000 MG in Sodium Chlor 0.9% Inj 250 ML IV.SIG SCH ×2 (20:26→21:45)
[2017-12-08 20:33] LABS: Chloride 100 meq/L (98-107); Potassium 3.7 meq/L (3.5-5.1); Sodium 135 meq/L (136-145)
[2017-12-08 20:36] LABS: Albumin 3.5 g/dL (3.4-5.0); Anion Gap 10 meq/L (5-15); Blood Urea Nitrogen 14 mg/dL (7-18); Carbon Dioxide 25.1 meq/L (21.0-32.0); Glucose,Random 130 mg/dL (74-106)
[2017-12-08 20:38] LABS: Baso # (Auto) 0.2 th/mm3 (0.0-0.2); Baso % (Auto) 1.7 % (0.0-2.0); Eos # (Auto) 0.1 th/mm3 (0.0-0.4); Hematocrit 45.5 % (39.0-51.0); Hemoglobin 15.1 gm/dL (13.0-17.0); Lymph # (Auto) 1.7 th/mm3 (1.0-4.8); Lymph % (Auto) 15.7 % (9.0-44.0); Mean Corpuscular HGB Conc 33.3 % (32.0-36.0); Mean Corpuscular Hemoglobin 31.9 pg (27.0-34.0); Mean Corpuscular Volume 95.9 fL (80.0-100.0); Mean Platelet Volume 11.2 fL (7.0-11.0); Mono # (Auto) 0.6 th/mm3 (0.0-0.9); Mono % (Auto) 5.1 % (0.0-8.0); Neut # (Auto) 8.3 th/mm3 (1.8-7.7); Neut % (Auto) 76.5 % (16.0-70.0); Platelet Count 120 th/mm3 (150-450); Red Blood Count 4.74 mil/mm3 (4.50-5.90); Red Cell Distribution Width 12.6 % (11.6-17.2); White Blood Count 10.9 th/mm3 (4.0-11.0)
[2017-12-08 20:39] LABS: Alanine Aminotransferase 65 U/L (12-78); Aspartate Aminotransferase 44 U/L (15-37); Glomerular Filtration Rate 78 mL/min (>89)
[2017-12-08 20:41] LABS: Total Protein 7.2 g/dL (6.4-8.2)
[2017-12-08 20:42] LABS: Alkaline Phosphatase 69 U/L (45-117)
--- NOTE | 2017-12-08 20:53 | US ---
EXAM DATE: 12/08/2017 7:32 PM EDT AGE/SEX: 57 years / Male INDICATIONS: Left knee swelling and redness. Evaluate for abscess. CLINICAL DATA: This is the patient's initial encounter. Patient reports that signs and symptoms have been present for 2 days and indicates a pain score of 9/10. MEDICAL/SURGICAL HISTORY: . MRSA. None. COMPARISON: [facility], CT FEMUR RIGHT W CONTRAST, 03/14/2017. . FINDINGS: A targeted ultrasound the anterior left knee region has been performed. There is edema within the sub cutaneous tissues. No focal fluid collection is seen. CONCLUSION: Superficial edema. Electronically signed by: Eliezer Castro MD 12/08/2017 8:51 PM EDT
[2017-12-08] MEDS ORDERED: Acetaminophen 325 MG Tablet PO PRN (22:26)
--- NOTE | 2017-12-08 22:47 | XR ---
EXAM DATE: 12/08/2017 12:00 AM EDT AGE/SEX: 57 years / Male INDICATIONS: Left knee redness and inflammation. CLINICAL DATA: This is the patient's initial encounter. Patient reports that signs and symptoms have been present for 1 week and indicates a pain score of 5/10. MEDICAL/SURGICAL HISTORY: . MRSA. None. COMPARISON: No prior exams available for comparison. FINDINGS: No fracture is seen. The knee joint is normally aligned. No effusion is seen. There is hypertrophic c hange at the anterior superior aspect of the patella. There is soft tissue swelling anteriorly in the superficial soft tissues. CONCLUSION: Anterior superficial soft tissue swelling. Electronically signed by: Eliezer Castro MD 12/08/2017 10:45 PM EDT
[2017-12-09] MEDS: Piperacil/Tazo 3.375 GM Premix 50 ML IV.SIG SCH ×5 (01:09→23:01)
[2017-12-09] MEDS: Ketorolac Inj 30 MG/ML (IVP) Vial IV.PUSH PRN ×2 (04:55→11:56)
[2017-12-09 05:28] LABS: Bilirubin,Urine Negative (Negative); Clarity,Urine Clear (Clear); Color,Urine Yellow (Yellw/Straw); Glucose,Urine (UA) 100 mg/dL (Negative); Leukocyte Esterase,Urine Negative (Negative); Nitrite,Urine Negative (Negative); Specific Gravity,Urine Greater/Equal 1.030 (1.002-1.035)
[2017-12-09 05:36] LABS: Mucus,Urine Moderate /lpf (Occasional); Squamous Epithelial Cell,Urine 0-5 /hpf (0-5)
[2017-12-09 06:47] LABS: Baso % (Auto) 0.4 % (0.0-2.0); Eos # (Auto) 0.2 th/mm3 (0.0-0.4); Eos % (Auto) 2.3 % (0.0-4.0); Hematocrit 44.5 % (39.0-51.0); Hemoglobin 15.1 gm/dL (13.0-17.0); Lymph # (Auto) 1.4 th/mm3 (1.0-4.8); Lymph % (Auto) 14.8 % (9.0-44.0); Mean Corpuscular Hemoglobin 32.5 pg (27.0-34.0); Mean Corpuscular Volume 95.5 fL (80.0-100.0); Mean Platelet Volume 10.2 fL (7.0-11.0); Mono # (Auto) 0.8 th/mm3 (0.0-0.9); Mono % (Auto) 8.2 % (0.0-8.0); Neut # (Auto) 6.9 th/mm3 (1.8-7.7); Neut % (Auto) 74.3 % (16.0-70.0); Platelet Count 113 th/mm3 (150-450); Red Blood Count 4.66 mil/mm3 (4.50-5.90); Red Cell Distribution Width 12.6 % (11.6-17.2); White Blood Count 9.3 th/mm3 (4.0-11.0)
[2017-12-09 06:50] LABS: Potassium 3.9 meq/L (3.5-5.1)
[2017-12-09 06:54] LABS: Calcium 7.7 mg/dL (8.5-10.1)
[2017-12-09 06:55] LABS: Carbon Dioxide 26.3 meq/L (21.0-32.0)
--- NOTE | 2017-12-09 14:45 | P.HP ---
History of Present Illness Primary Care Physician: Kaz Charles Chief Complaint: Left leg pain and swelling History of Present Illness: 57-year-old male with no chronic medical illnesses who presented to hospital because of left leg pain, swelling. Patient states 3 days ago he noticed like a pimple on his medial left patella and he popped it and cleaned with alcohol. The patient went to restoration the next day and he had very difficult time with standing up and walking after that and then he came to the emergency department yesterday. By the time he got emergency department has significant edema and erythema of the left lower extremity. Patient states that he was having progressive and severe pain in the left lower extremity which is causing him difficulty with ambulation. Patient states that he was having fever and chills at home. - Diagnosis (1) Cellulitis of left leg (2) Leukocytosis Review of Systems All other systems reviewed negative except as stated in HPI Constitutional: Reports chills, Reports fever(s) Skin/Breast: Reports change in skin color PMFSH - History History Provided By: Patient - Medical History Medical History: Medical History (Last Updated 12/09/17 @ 14:33 by ALBERTO Bruno) No pertinent past medical history - Surgical History Surgical History: Surgical History (Last Updated 12/09/17 @ 14:32 by ALBERTO Bruno) History of hip surgery History of rotator cuff surgery - Family History Family History: Family History (Last Updated 12/09/17 @ 14:33 by ALBERTO Bruno) Father History of emphysema - Tobacco History Second Hand Smoke Exposure: No Smoking Status: Never smoker - Alcohol History How Often Do You Have a Drink Containing Alcohol: Never - Substance Use History Substance History: No History of Abuse - Travel History Recent Travel in the [place] Within the Last 8 Weeks: No Recent Travel Out of the Country Within the Last 8 Weeks: No - Immunization History Tetanus Immunization: <5 Years Medications and Allergies Active Medications: Active Medications Acetaminophen (Tylenol) 650 mg PO Q4H PRN PRN Reason: Temp > 100.4 Piperacillin/Tazobactam/Dextrose (Zosyn 3.375 Gm Premix) 50 mls @ 100 mls/hr IV.SIG Q6H MCKENNA Last Infusion: 12/09/17 12:24 Dose: Infused Ketorolac Tromethamine (Toradol Inj) 30 mg IV.PUSH Q6H PRN PRN Reason: pain 1 to 10 Stop: 12/14/17 03:42 Last Admin: 12/09/17 11:56 Dose: 30 mg Ondansetron HCl (Zofran Inj) 4 mg IV.PUSH Q6H PRN PRN Reason: NAUSEA OR VOMITING Allergies Allergy/AdvReac Type Severity Reaction Status Date / Time No Known Allergies Allergy Verified 12/08/17 19:14 Home Medications Medication Instructions Recorded Confirmed Type No Known Home Medications 12/08/17 12/08/17 History Exam Vital signs: Vital Signs 12/08/17 19:14 12/08/17 23:18 12/09/17 00:00 Temperature 100.2 F H 99.0 F 99.0 F Pulse Rate 100 H 91 H 98 H Respiratory Rate 18 Blood Pressure 143/76 H 138/68 130/80 Pulse Oximetry 95 98 99 12/09/17 04:00 12/09/17 08:00 12/09/17 12:00 Temperature 99.4 F 99.7 F H 97.6 F Pulse Rate 78 77 Respiratory Rate 18 18 Blood Pressure 140/67 154/83 H Pulse Oximetry 95 96 Intake & Output 12/08/17 12/09/17 12/09/17 18:59 06:59 18:59 Intake Total 600 / 600 50 / 50 Output Total 450 / 450 Balance 150 / 150 50 / 50 Weight 98.1 kg Intake: IV 600 / 600 50 / 50 Zosyn 3.375 GM Premix 50 ML @ 100 / 100 50 / 50 100 mls/hr IV.SIG Q6H MCKENNA Rx#: [id number] Vancomycin Inj 1,000 MG In NS 500 / 500 Inj 250 ML @ 250 mls/hr IV.SIG Q1H MCKENNA Rx#:[id number] Output: Urine 450 / 450 Other: # Voids 1 Narrative: GENERAL: Well-developed, well-nourished, in no acute distress. alert and orientated HEENT: Head is normocephalic without any lesions or masses noted. Facial features are symmetric. Eyes: Pupils equal round reactive to light. Extraocular muscles are intact. Conjunctivae were clear. Oropharyngeal: Pharynx without any erythema edema. Tongue is midline without deviation. Buccal mucosa is moist without any masses or lesions NECK: Supple without any masses. Trachea midline no deviation. No JVD, no bruits are appreciated CARDIAC: Regular rhythm, regular rate. S1/S2 are heard. No murmurs gallops or rubs. LUNGS: Clear to auscultation bilaterally. No wheeze, rhonchi or rales. No use of accessory muscles on inspiration or expiration. ABDOMEN: Soft, nontender. Nondistended. Bowel sounds heard in all 4 quadrants. No organomegaly or masses. Negative rebound, negative guarding EXTREMITIES: No edema, pulses are equal bilaterally. No cyanosis or clubbing NEUROLOGY: Mood and affect appear appropriate. Cranial nerves II through XII grossly intact. Muscle strength 5/5 in upper and lower extremities bilaterally. Deep tendon reflexes are 2+ in upper and lower extremities bilaterally. LEFT LOWER EXTREMITY: Patient does have significant edema noted all the way from the thigh down to ankle. There is mild erythema noted over the entire area. There is some increased erythema noted over the medial patella area. Results - Labs CBC & Chem 7: 12/10/17 06:41 12/09/17 06:22 Labs: Laboratory Results - last 24 hr 12/08/17 12/08/17 12/08/17 19:50 19:50 19:50 CBC w Diff Auto diff final WBC 10.9 RBC 4.74 Hgb 15.1 Hct 45.5 MCV 95.9 MCH 31.9 MCHC 33.3 RDW 12.6 Plt Count 120 L MPV 11.2 H Neut % (Auto) 76.5 H Lymph % (Auto) 15.7 [place] % (Auto) 5.1 Eos % (Auto) 1.0 Baso % (Auto) 1.7 Neut # (Auto) 8.3 H Lymph # (Auto) 1.7 [place] # (Auto) 0.6 Eos # (Auto) 0.1 Baso # (Auto) 0.2 WBC Differential . Differential Comment . Sodium 135 L Potassium 3.7 Chloride 100 Carbon Dioxide 25.1 Anion Gap 10 BUN 14 Creatinine 0.98 Estimated GFR 78 L Random Glucose 130 H Lactic Acid 0.7 Calcium 8.0 L Total Bilirubin 0.8 AST 44 H ALT 65 Alkaline Phosphatase 69 Total Protein 7.2 Albumin 3.5 Urine Color Urine Clarity Urine pH Ur Specific [place] Urine Protein Urine Glucose (UA) Urine Ketones Urine Occult Blood Urine Nitrate Urine Bilirubin Urine Urobilinogen Ur Leukocyte Esterase Ur Squamous Epith Cells Urine Mucus Micro UA Comment Ur Microscopic Review Urine Culture Comments 12/09/17 12/09/17 12/09/17 05:06 06:22 06:22 CBC w Diff Auto diff final WBC 9.3 RBC 4.66 Hgb 15.1 Hct 44.5 MCV 95.5 MCH 32.5 MCHC 34.0 RDW 12.6 Plt Count 113 L MPV 10.2 Neut % (Auto) 74.3 H Lymph % (Auto) 14.8 [place] % (Auto) 8.2 H Eos % (Auto) 2.3 Baso % (Auto) 0.4 Neut # (Auto) 6.9 Lymph # (Auto) 1.4 [place] # (Auto) 0.8 Eos # (Auto) 0.2 Baso # (Auto) 0.0 WBC Differential . Differential Comment . Sodium 139 Potassium 3.9 Chloride 105 Carbon Dioxide 26.3 Anion Gap 8 BUN 11 Creatinine 0.93 Estimated GFR 83 L Random Glucose 89 Lactic Acid Calcium 7.7 L Total Bilirubin AST ALT Alkaline Phosphatase Total Protein Albumin Urine Color Yellow Urine Clarity Clear Urine pH 6.0 Ur Specific [place] Greater/equal 1.030 Urine Protein Negative Urine Glucose (UA) 100 H Urine Ketones Negative Urine Occult Blood Negative Urine Nitrate Negative Urine Bilirubin Negative Urine Urobilinogen 1.0 Ur Leukocyte Esterase Negative Ur Squamous Epith Cells 0-5 Urine Mucus Moderate H Micro UA Comment Culture not ind Ur Microscopic Review Microscopic reviewed Urine Culture Comments Culture not ind - Imaging Impressions Knee X-Ray 12/08/17 00:00 CONCLUSION: Anterior superficial soft tissue swelling. Chest X-Ray 12/08/17 19:32 CONCLUSION: No acute cardiopulmonary process. Lower Extremity Ultrasound 12/08/17 19:32 CONCLUSION: Superficial edema. Caprini VTE Risk Assessment Caprini VTE Risk Assessment: Moderate/High Risk (score >= 2) Caprini Risk Assessment Model: Point Value = 1 Point Value = 2 Point Value = 3 Point Value = 5 Age 41-60 Minor surgery BMI > 25 kg/m2 Swollen legs Varicose veins or History of unexplained or recurrent spontaneous Oral contraceptives or hormone replacement Sepsis (< 1 month) Serious lung disease, including pneumonia (< 1 month) Abnormal pulmonary function Acute myocardial infarction Congestive heart failure (< 1 month) History of inflammatory bowel disease Medical patient at bed rest Age 61-74 Arthroscopic surgery Major open surgery (> 45 min) Laparoscopic surgery (> 45 min) Malignancy Confined to bed (> 72 hours) Immobilizing plaster cast Central venous access Age >= 75 History of VTE Family history of VTE Factor V Leiden Prothrombin [id number] Lupus anticoagulant Anticardiolipin antibodies Elevated serum homocysteine Heparin-induced thrombocytopenia Other congenital or acquired thrombophilia Stroke (< 1 month) Elective arthroplasty Hip, pelvis, or leg fracture Acute spinal cord injury (< 1 month) Prophylaxis Regimen: Total Risk Factor Score Risk Level Prophylaxis Regimen 0-1 Low Early ambulation 2 Moderate Order ONE of the following: *Sequential Compression Device (SCD) *Heparin 5000 units SQ BID 3-4 Higher Order ONE of the following medications: *Heparin 5000 units SQ TID *Enoxaparin/Lovenox 40 mg SQ daily (WT < 150 kg, CrCl > 30 mL/min) *Enoxaparin/Lovenox 30 mg SQ daily (WT < 150 kg, CrCl > 10-29 mL/min) *Enoxaparin/Lovenox 30 mg SQ BID (WT < 150 kg, CrCl > 30 mL/min) AND/OR *Sequential Compression Device (SCD) 5 or more Highest Order ONE of the following medications: *Heparin 5000 units SQ TID (Preferred with Epidurals) *Enoxaparin/Lovenox 40 mg SQ daily (WT < 150 kg, CrCl > 30 mL/min) *Enoxaparin/Lovenox 30 mg SQ daily (WT < 150 kg, CrCl > 10-29 mL/min) *Enoxaparin/Lovenox 30 mg SQ BID (WT < 150 kg, CrCl > 30 mL/min) AND *Sequential Compression Device (SCD) Assessment and Plan - Assessment (1) Cellulitis of left leg Code(s): L03.116 - Cellulitis of left lower limb Status: Acute (2) Leukocytosis Code(s): D72.829 - Elevated white blood cell count, unspecified Status: Acute - Plan Left lower extremity cellulitis -Unknown etiology at this time. -Lower extremity ultrasound did not indicate any acute abnormality, only indicate superficial edema -X-ray of the left knee indicates anterior superficial soft tissue swelling -Obtain venous Doppler of the left lower extremity -Blood cultures are negative for 1 day -Continue monitor wound culture -Patient was started on Zosyn -Pain control DVT prevention -Subcutaneous heparin
--- NOTE | 2017-12-09 15:23 | US ---
EXAM DATE: 12/09/2017 2:41 PM EDT AGE/SEX: 57 years / Male INDICATIONS: Left leg swelling. CLINICAL DATA: This is the patient's initial encounter. Patient reports that signs and symptoms have been present for 3 days and indicates a pain score of 6/10. MEDICAL/SURGICAL HISTORY: . Left leg swelling. . Hip surgery. Rotator cuff surgery. COMPARISON: [facility], US LEG SOFT TISSUE LEFT, 12/08/2017. . TECHNIQUE: Venous ultrasound of both lower extremities was performed from the inguinal ligament to t he proximal calf. Real-time, color Doppler and spectral tracing, compression and augmentation techni ques were used. FINDINGS: Normal compression of the deep venous system from the inguinal region to the proximal calf . No echogenic clot is seen. Normal response of the venous system to augmentation and respiration. CONCLUSION: The study is negative for lower extremity deep venous thrombosis. Electronically signed by: Eliezer Yang MD 12/09/2017 3:22 PM EDT
[2017-12-09] MEDS: Heparin - SQ 10,000 UNITS/ML Vial SQ SCH ×2 (16:28→23:02)
--- NOTE | 2017-12-09 20:10 | ECG ---
Date Performed: 12/08/2017 Time Performed: 19:45:40 PTAGE: 57 years EKG: Sinus rhythm NORMAL ECG PREVIOUS TRACING : 05/26/2012 16.10 Since the previous tracing, no significant change noted DOCTOR: Baldev Patel Interpretating Date/Time 12/09/2017 20:09:44
[2017-12-10] MEDS: Piperacil/Tazo 3.375 GM Premix 50 ML IV.SIG SCH ×2 (06:20→13:05)
[2017-12-10 07:13] LABS: Baso # (Auto) 0.2 th/mm3 (0.0-0.2); Baso % (Auto) 2.2 % (0.0-2.0); Eos # (Auto) 0.2 th/mm3 (0.0-0.4); Eos % (Auto) 2.6 % (0.0-4.0); Hematocrit 46.1 % (39.0-51.0); Hemoglobin 15.9 gm/dL (13.0-17.0); Lymph # (Auto) 1.5 th/mm3 (1.0-4.8); Lymph % (Auto) 17.4 % (9.0-44.0); Mean Corpuscular HGB Conc 34.4 % (32.0-36.0); Mean Corpuscular Hemoglobin 32.2 pg (27.0-34.0); Mean Corpuscular Volume 93.7 fL (80.0-100.0); Mean Platelet Volume 11.2 fL (7.0-11.0); Mono # (Auto) 0.7 th/mm3 (0.0-0.9); Mono % (Auto) 8.3 % (0.0-8.0); Neut % (Auto) 69.5 % (16.0-70.0); Platelet Count 138 th/mm3 (150-450); Red Blood Count 4.92 mil/mm3 (4.50-5.90); White Blood Count 8.6 th/mm3 (4.0-11.0)
[2017-12-10] MEDS: Heparin - SQ 10,000 UNITS/ML Vial SQ SCH ×2 (09:55→20:26)
[2017-12-10] MEDS ORDERED: Vancomycin Inj 1 GM/200 ML PIGGYBACK IV.SIG ONE (11:50)
--- NOTE | 2017-12-10 11:55 | P.PN ---
Subjective Interval history: 57-year-old male who is seen and examined today for follow-up on left lower extremity cellulitis, lymphangitis. Patient states that pain is worse than yesterday. He is to keep his leg elevated or to have significant throbbing pain. Vital signs are stable. Patient remains afebrile. Physical Exam Vital signs: Vital Signs 12/09/17 12:00 12/09/17 15:53 12/09/17 18:43 Temperature 97.6 F 100.0 F H 99.2 F Pulse Rate 77 66 Respiratory Rate 18 18 Blood Pressure 154/83 H 146/72 H Pulse Oximetry 96 98 12/09/17 20:00 12/09/17 23:57 12/10/17 08:00 Temperature 98.8 F 98.4 F 99.9 F H Pulse Rate 77 75 69 Respiratory Rate 18 18 17 Blood Pressure 138/71 135/70 127/73 Pulse Oximetry 97 98 97 Intake & Output 12/09/17 12/10/17 12/10/17 18:59 06:59 18:59 Intake Total 960 / 960 100 / 100 Output Total 900 / 900 Balance 960 / 960 -800 / -800 Weight 98 kg Intake: IV 100 / 100 100 / 100 Zosyn 3.375 GM Premix 50 ML @ 100 / 100 100 / 100 100 mls/hr IV.SIG Q6H MCKENNA Rx#: [id number] Oral 860 / 860 Output: Urine 900 / 900 Other: # Voids 3 2 # Bowel Movements 2 Narrative: GENERAL: Well-developed, well-nourished, in no acute distress. alert and orientated HEENT: Head is normocephalic without any lesions or masses noted. Facial features are symmetric. Eyes: Extraocular muscles are intact. Conjunctivae were clear. NECK: Supple without any masses. Trachea midline no deviation. No JVD, CARDIAC: Regular rhythm, regular rate. S1/S2 are heard. No murmurs gallops or rubs. LUNGS: Clear to auscultation bilaterally. No wheeze, rhonchi or rales. No use of accessory muscles on inspiration or expiration. ABDOMEN: Soft, nontender. Nondistended. Bowel sounds heard in all 4 quadrants. No organomegaly or masses. Negative rebound, negative guarding EXTREMITIES: No edema, pulses are equal bilaterally. No cyanosis or clubbing NEUROLOGY: Mood and affect appear appropriate. Cranial nerves II through XII grossly intact. Moving all extremities, speech is clear LEFT LOWER EXTREMITY: Patient does have significant edema noted all the way from the thigh down to ankle. There is mild erythema noted over the entire area. There is some increased erythema noted over the medial patella area, now with area of purulent material. Results - Labs CBC & Chem 7: 12/10/17 06:41 12/09/17 06:22 Laboratory Results - last 24 hr 12/10/17 06:41 CBC w Diff Auto diff final WBC 8.6 RBC 4.92 Hgb 15.9 Hct 46.1 MCV 93.7 MCH 32.2 MCHC 34.4 RDW 13.0 Plt Count 138 L MPV 11.2 H Neut % (Auto) 69.5 Lymph % (Auto) 17.4 [place] % (Auto) 8.3 H Eos % (Auto) 2.6 Baso % (Auto) 2.2 H Neut # (Auto) 6.0 Lymph # (Auto) 1.5 [place] # (Auto) 0.7 Eos # (Auto) 0.2 Baso # (Auto) 0.2 WBC Differential . Differential Comment . Microbiology 12/08/17 22:50 Tissue - Knee Gram Stain - Final 12/08/17 22:50 Tissue - Knee Wound Culture - Preliminary S. aureus MRSA 12/08/17 19:50 Blood - Peripheral Aerobic Blood Culture - Preliminary No growth in 2 days 12/08/17 19:50 Blood - Peripheral Anaerobic Blood Culture - Preliminary No growth in 2 days 12/08/17 20:00 Blood - Peripheral Aerobic Blood Culture - Preliminary No growth in 2 days 12/08/17 20:00 Blood - Peripheral Anaerobic Blood Culture - Preliminary No growth in 2 days - Imaging Impressions Venous Doppler Study 12/09/17 14:41 CONCLUSION: The study is negative for lower extremity deep venous thrombosis. Assessment and Plan - Assessment (1) Cellulitis of left leg Code(s): L03.116 - Cellulitis of left lower limb Status: Acute (2) Leukocytosis Code(s): D72.829 - Elevated white blood cell count, unspecified Status: Acute - Plan Left lower extremity cellulitis -Unknown etiology at this time. -Lower extremity ultrasound did not indicate any acute abnormality, only indicate superficial edema -X-ray of the left knee indicates anterior superficial soft tissue swelling -Venous Doppler of the left lower extremity did not indicate any DVT -Blood cultures are negative for 2 days -Wound culture indicating staph aureus MRSA -Discontinue Zosyn, start vancomycin -Pain control DVT prevention -Subcutaneous heparin
[2017-12-10] MEDS ORDERED: Vancomycin Consult Pharmacy 1 EACH OTHER SCH (12:00)
[2017-12-10] MEDS: Vancomycin Inj 1,500 MG in Sodium Chlor 0.9% Inj 500 ML IV.SIG SCH (14:37)
[2017-12-11] MEDS: Vancomycin Inj 1,500 MG in Sodium Chlor 0.9% Inj 500 ML IV.SIG SCH ×2 (01:03→13:33)
[2017-12-11] MEDS: Ketorolac Inj 30 MG/ML (IVP) Vial IV.PUSH PRN (01:52)
[2017-12-11] MEDS ORDERED: Morphine Sulfate Inj 2 MG/ML Vial IV.PUSH ONE (02:04)
--- NOTE | 2017-12-11 09:10 | P.PN ---
Subjective Interval history: 57-year-old male who is seen and examined today for follow-up on left knee cellulitis. Patient states that the pain is more severe today. Did get some morphine last night which did help. Blood pressure mildly elevated. Patient remains afebrile Physical Exam Vital signs: Vital Signs 12/10/17 12:00 12/10/17 16:00 12/10/17 20:00 Temperature 99.9 F H 99.3 F 99.5 F Pulse Rate 62 68 73 Respiratory Rate 15 18 20 Blood Pressure 153/81 H 149/90 H 162/76 H Pulse Oximetry 99 97 95 12/11/17 00:00 Temperature 98.0 F Pulse Rate 62 Respiratory Rate 20 Blood Pressure 138/76 Pulse Oximetry 94 L Intake & Output 12/10/17 12/11/17 12/11/17 18:59 06:59 18:59 Intake Total 995 / 995 1235 / 1235 Output Total 650 / 650 Balance 995 / 995 585 / 585 Weight 98.2 kg Intake: IV 515 / 515 515 / 515 Vancomycin Inj 1,500 MG In NS 515 / 515 515 / 515 Inj 500 ML @ 250 mls/hr IV.SIG Q12H MCKENNA Rx#:[id number] Oral 480 / 480 720 / 720 Output: Urine 650 / 650 Other: # Voids 4 # Bowel Movements 0 Narrative: GENERAL: Well-developed, well-nourished, in no acute distress. alert and orientated HEENT: Head is normocephalic without any lesions or masses noted. Facial features are symmetric. Eyes: Pupils equal round reactive to light. Extraocular muscles are intact. Conjunctivae were clear. Oropharyngeal: Pharynx without any erythema edema. Tongue is midline without deviation. Buccal mucosa is moist without any masses or lesions NECK: Supple without any masses. Trachea midline no deviation. No JVD, no bruits are appreciated CARDIAC: Regular rhythm, regular rate. S1/S2 are heard. No murmurs gallops or rubs. LUNGS: Clear to auscultation bilaterally. No wheeze, rhonchi or rales. No use of accessory muscles on inspiration or expiration. ABDOMEN: Soft, nontender. Nondistended. Bowel sounds heard in all 4 quadrants. No organomegaly or masses. Negative rebound, negative guarding EXTREMITIES: No edema, pulses are equal bilaterally. No cyanosis or clubbing NEUROLOGY: Mood and affect appear appropriate. Cranial nerves II through XII grossly intact. Muscle strength 5/5 in upper and lower extremities bilaterally. Deep tendon reflexes are 2+ in upper and lower extremities bilaterally. LEFT LOWER EXTREMITY: The leg edema and leg erythema has significantly improved. However he has more localized erythema noted over the medial aspect of his patella. Patient does have more edema noted around the knee itself. Results - Labs CBC & Chem 7: 12/10/17 06:41 12/09/17 06:22 Microbiology 12/08/17 22:50 Tissue - Knee Gram Stain - Final 12/08/17 22:50 Tissue - Knee Wound Culture - Final S. aureus MRSA 12/08/17 19:50 Blood - Peripheral Aerobic Blood Culture - Preliminary No growth in 2 days 12/08/17 19:50 Blood - Peripheral Anaerobic Blood Culture - Preliminary No growth in 2 days 12/08/17 20:00 Blood - Peripheral Aerobic Blood Culture - Preliminary No growth in 2 days 12/08/17 20:00 Blood - Peripheral Anaerobic Blood Culture - Preliminary No growth in 2 days Assessment and Plan - Assessment (1) Cellulitis of left leg Code(s): L03.116 - Cellulitis of left lower limb Status: Acute (2) Leukocytosis Code(s): D72.829 - Elevated white blood cell count, unspecified Status: Acute - Plan Left lower extremity cellulitis -Unknown etiology at this time. -Lower extremity ultrasound did not indicate any acute abnormality, only indicate superficial edema -X-ray of the left knee indicates anterior superficial soft tissue swelling -Venous Doppler lower extremity does not indicate any DVT -Blood cultures are negative for 2 day -Wound culture with MRSA -Continue vancomycin -Pain control with [place], morphine -CT scan with IV contrast of the left knee was performed which did indicate a superficial abscess formation. No intra-articular abnormalities. -Orthopedic surgeon was consulted for incision and drainage DVT prevention -Subcutaneous heparin
[2017-12-11] MEDS: Morphine Sulfate Inj 2 MG/ML Vial IV.PUSH PRN ×4 (09:41→20:35)
[2017-12-11] MEDS: Heparin - SQ 10,000 UNITS/ML Vial SQ SCH ×2 (09:45→22:38)
--- NOTE | 2017-12-11 10:41 | CT ---
EXAM DATE: 12/11/2017 9:49 AM EDT AGE/SEX: 57 years / Male INDICATIONS: Left knee pain, redness, and swelling. CLINICAL DATA: This is the patient's initial encounter. Patient reports that signs and symptoms have been present for 1 week and indicates a pain score of 8/10. MEDICAL/SURGICAL HISTORY: None. . Hip surgery. Rotator cuff surgery. RADIATION DOSE: 24.70 CTDI (mGy) COMPARISON: [facility], US VENOUS DOPPLER LEG LEFT, 12/09/2017. [facility], KNEE COMPLETE LEFT 4V, 12/08/2017 . . TECHNIQUE: Multiple contiguous axial images were acquired using a multirow detector CT scanner after the intravenous administration of 95 ml Omnipaque 350 (iohexol) nonionic water-soluble contrast as a single exam dose. Multiplanar reconstruction was performed in the sagittal and coronal planes. Usi ng automated exposure control and adjustment of the mA and/or kV according to patient size, radiation dose was kept as low as reasonably achievable to obtain optimal diagnostic quality images. DICOM fo rmat image data is available electronically for review and comparison. FINDINGS: Bones: The bony structures about the knee are in normal alignment. The distal femur and proximal ti jose alberto and fibula are intact. No fracture is seen. Joints: There is mild bony productive changes with subchondral cyst formation identified within the medial joint line and mild degenerative changes of the patellofemoral joint. Soft Tissues: There is significant anterior soft tissue edema overlying the region of the patella an d extensor mechanism with a small rim-enhancing fluid collection identified just inferior to the [place] and superficial to the extensor mechanism. This fluid collection measures 2.3 cm craniocaudally b y 3.1 cm transversely by 1.1 cm anterior posterior. Other: No foreign bodies seen. CONCLUSION: 1. Extensive anterior soft tissue edema overlying the patella and extensor mechanism with a small ri m-enhancing abscess identified within the superficial soft tissues just inferior to the level of the patella. No evidence of foreign body. Electronically signed by: Kathleen Mclain MD 12/11/2017 10:40 AM EDT
[2017-12-11] MEDS ORDERED: Post-op Orders (for Pharmacy) OTHER STA (12:03)
[2017-12-12] MEDS: Morphine Sulfate Inj 2 MG/ML Vial IV.PUSH PRN ×7 (00:08→22:12)
[2017-12-12] MEDS: Vancomycin Inj 1,500 MG in Sodium Chlor 0.9% Inj 500 ML IV.SIG SCH ×2 (02:32→14:46)
[2017-12-12] MEDS: Heparin - SQ 10,000 UNITS/ML Vial SQ SCH ×2 (09:10→23:16)
[2017-12-12] MEDS ORDERED: Pharmacy Ordered Lab Info OTHER ONE (13:45)
--- NOTE | 2017-12-12 13:54 | P.CONOP ---
[facility] Orthopedics Consult Note - [facility] Consult date: 12/12/17 Chief complaint: Cellulitis with lymphangitis/left lower extremity Narrative: 57-year-old male with no chronic medical illnesses who presented to hospital because of left leg pain, swelling. Patient states 3 days ago he noticed like a pimple on his medial left patella and he popped it and cleaned with alcohol. The patient went to [place] the next day and he had very difficult time with standing up and walking after that and then he came to the emergency department yesterday. Patient states when he presented to the emergency department, he had significant redness and swelling around the knee and thought he likely had an abscess. He denies any fevers or chills, nausea or vomiting, or other signs of infection. Of note, patient states he has previously had multiple skin abscesses which all were lanced in the emergency department with oral antibiotics and discharged. Review of Systems denies fevers, chills, nausea, vomiting. Denies throat pain, cough, chest pain or abdominal pain. Denies shortness of breath. Denies dizziness or blurry vision. Denies back pain, weakness, numbness or tingling. Denies change in urination or bowel habits. Report left knee pain and swelling although decreasing erythema compared to 2 days previously. [facility] - History History Provided By: Patient - Medical History Medical History: Medical History (Last Updated 12/09/17 @ 14:33 by ALBERTO Bruno) No pertinent past medical history - Surgical History Surgical History: Surgical History (Last Updated 12/09/17 @ 14:32 by ALBERTO Bruno) History of hip surgery History of rotator cuff surgery - Family History Family History: Family History (Last Updated 12/09/17 @ 14:33 by ALBERTO Bruno) Father History of emphysema - Tobacco History Second Hand Smoke Exposure: No Smoking Status: Never smoker - Alcohol History How Often Do You Have a Drink Containing Alcohol: Never - Substance Use History Substance History: No History of Abuse - Travel History Recent Travel in the [place] Within the Last 8 Weeks: No Recent Travel Out of the Country Within the Last 8 Weeks: No - Immunization History Tetanus Immunization: <5 Years Medications and Allergies Active Medications: Active Medications Acetaminophen (Tylenol) 650 mg PO Q4H PRN PRN Reason: Temp > 100.4 Hydrocodone Bitart/Acetaminophen ([place] 5/325) 1 tab PO Q6H PRN PRN Reason: PAIN SCALE 1 TO 5 Hydrocodone Bitart/Acetaminophen ([place] 10/325) 1 tab PO Q6H PRN PRN Reason: PAIN SCALE 6 TO 10 Last Admin: 12/12/17 12:59 Dose: 1 tab Heparin Sodium (Porcine) (Heparin Inj) 5,000 units SQ Q12HR [facility] Last Admin: 12/12/17 09:10 Dose: Not Given Pharmacy Profile Note (Vancomycin Consult Pharmacy) 0 mls @ 0 mls/hr OTHER UNSCH [facility] Vancomycin HCl 1,500 mg/ (Sodium Chloride) 515 mls @ 250 mls/hr IV.SIG Q12H [facility] Last Infusion: 12/12/17 04:08 Dose: Infused Morphine Sulfate (Morphine Inj) 2 mg IV.PUSH Q4H PRN PRN Reason: BREAKTHROUGH PAIN Last Admin: 12/12/17 10:19 Dose: 2 mg Ondansetron HCl (Zofran Inj) 4 mg IV.PUSH Q6H PRN PRN Reason: NAUSEA OR VOMITING Allergies Allergy/AdvReac Type Severity Reaction Status Date / Time No Known Allergies Allergy Verified 12/08/17 19:14 Home Medications Medication Instructions Recorded Confirmed Type No Known Home Medications 12/08/17 12/08/17 History Exam Vital signs: Vital Signs 12/11/17 16:00 12/11/17 20:00 12/12/17 00:00 Temperature 98.3 F 97.8 F 100.3 F H Pulse Rate 76 76 72 Respiratory Rate 20 16 16 Blood Pressure 153/79 H 119/73 Pulse Oximetry 99 94 L 95 12/12/17 01:35 12/12/17 08:00 12/12/17 11:37 Temperature 98.4 F 98.3 F Pulse Rate 63 68 Respiratory Rate 20 16 16 Blood Pressure 123/71 123/78 Pulse Oximetry 95 96 12/12/17 12:59 Temperature Pulse Rate Respiratory Rate 18 Blood Pressure Pulse Oximetry Intake & Output 12/11/17 12/12/17 12/12/17 18:59 06:59 18:59 Intake Total 1475 / 1475 515 / 515 Output Total 1000 / 1000 400 / 400 Balance 475 / 475 115 / 115 Weight 96.4 kg Intake: IV 515 / 515 515 / 515 Vancomycin Inj 1,500 MG In NS 515 / 515 515 / 515 Inj 500 ML @ 250 mls/hr IV.SIG Q12H [facility] Rx#:[id number] Oral 960 / 960 Output: Urine 1000 / 1000 400 / 400 Other: Date of Last Bowel Movement 12/11/17 12/11/17 Narrative: awake, alert, no acute distress Normocephalic Pupils equal No JVD Moist mucous femoris Soft nontender abdomen Nonlabored respirations Regular rate Left lower extremity: Edema and erythema over the medial aspect of the left knee with small area of fluctuance. No appreciable knee effusion. Patient will not allow full range of motion due to discomfort over the medial aspect of the knee. Patient states the erythema is significantly less than 2 days previously. Small amount of purulence able to be expressed from area of fluctuance. Negative Homans. Neurovascularly intact distally. Brisk cap refill. Bilateral upper extremities and right lower extremity: No visible deformities or tenderness palpation. No signs of infection. Full active range of motion and strength throughout. Sensation intact. Brisk cap refill. No rash Normal affect Results - Labs Result Diagrams: 12/10/17 06:41 12/09/17 06:22 Assessment and Plan - Assessment and Plan 57yo M with small ~2cm superficial abscess near left knee I discussed with the patient that he has an approximately 2 cm small area of fluid collection superficially around his left knee on CT and exam. This is likely abscess as I was able to get a small amount of purulence expressed on exam. I did discuss with the patient the options of management including continued nonoperative care with antibiotics versus operative intervention. I discussed operative intervention in the form of irrigation and debridement of his right knee superficial abscess. I discussed with the patient that most often this is performed in the emergency department, however, since this was not performed prior to admission, I would recommend doing this in the operating room at this point. Risks, benefits, alternatives were discussed with the patient. Risks including but not limited to: Persistent or recurrent infection , neurovascular injury, persistent knee pain and/or swelling, possible knee stiffness, possible need for further surgery, and other unforeseen complications were discussed with the patient. At this time he has consented to the above-mentioned procedure. Patient has already had lunch today and therefore he will be made nothing by mouth at midnight for surgery tomorrow afternoon.
--- NOTE | 2017-12-12 14:35 | P.PN ---
Subjective Interval history: 57-year-old male who is seen and examined today for follow-up on left knee cellulitis with abscess. Patient states that the pain is controlled with pain medication and ice pack. Awaiting orthopedic for incision and drainage. Vital signs are stable. Patient remains afebrile. Physical Exam Vital signs: Vital Signs 12/11/17 16:00 12/11/17 20:00 12/12/17 00:00 Temperature 98.3 F 97.8 F 100.3 F H Pulse Rate 76 76 72 Respiratory Rate 20 16 16 Blood Pressure 153/79 H 119/73 Pulse Oximetry 99 94 L 95 12/12/17 01:35 12/12/17 08:00 12/12/17 11:37 Temperature 98.4 F 98.3 F Pulse Rate 63 68 Respiratory Rate 20 16 16 Blood Pressure 123/71 123/78 Pulse Oximetry 95 96 12/12/17 12:59 Temperature Pulse Rate Respiratory Rate 18 Blood Pressure Pulse Oximetry Intake & Output 12/11/17 12/12/17 12/12/17 18:59 06:59 18:59 Intake Total 1475 / 1475 515 / 515 Output Total 1000 / 1000 400 / 400 Balance 475 / 475 115 / 115 Weight 96.4 kg Intake: IV 515 / 515 515 / 515 Vancomycin Inj 1,500 MG In NS 515 / 515 515 / 515 Inj 500 ML @ 250 mls/hr IV.SIG Q12H [facility] Rx#:[id number] Oral 960 / 960 Output: Urine 1000 / 1000 400 / 400 Other: Date of Last Bowel Movement 12/11/17 12/11/17 Narrative: GENERAL: Well-developed, well-nourished, in no acute distress. alert and orientated HEENT: Head is normocephalic without any lesions or masses noted. Facial features are symmetric. Eyes: Pupils equal round reactive to light. Extraocular muscles are intact. Conjunctivae were clear. Oropharyngeal: Pharynx without any erythema edema. Tongue is midline without deviation. Buccal mucosa is moist without any masses or lesions NECK: Supple without any masses. Trachea midline no deviation. No JVD, no bruits are appreciated CARDIAC: Regular rhythm, regular rate. S1/S2 are heard. No murmurs gallops or rubs. LUNGS: Clear to auscultation bilaterally. No wheeze, rhonchi or rales. No use of accessory muscles on inspiration or expiration. ABDOMEN: Soft, nontender. Nondistended. Bowel sounds heard in all 4 quadrants. No organomegaly or masses. Negative rebound, negative guarding EXTREMITIES: No edema, pulses are equal bilaterally. No cyanosis or clubbing NEUROLOGY: Mood and affect appear appropriate. Cranial nerves II through XII grossly intact. Muscle strength 5/5 in upper and lower extremities bilaterally. Deep tendon reflexes are 2+ in upper and lower extremities bilaterally. LEFT LOWER EXTREMITY: The leg edema and leg erythema has significantly improved. However he has more localized erythema noted over the medial aspect of his patella. Patient does have more edema noted around the knee itself. Results - Labs CBC & Chem 7: 12/10/17 06:41 12/09/17 06:22 Microbiology 12/08/17 19:50 Blood - Peripheral Aerobic Blood Culture - Preliminary No growth in 4 days 12/08/17 19:50 Blood - Peripheral Anaerobic Blood Culture - Preliminary No growth in 4 days 12/08/17 20:00 Blood - Peripheral Aerobic Blood Culture - Preliminary No growth in 4 days 12/08/17 20:00 Blood - Peripheral Anaerobic Blood Culture - Preliminary No growth in 4 days Assessment and Plan - Assessment (1) Cellulitis of left leg Code(s): L03.116 - Cellulitis of left lower limb Status: Acute (2) Leukocytosis Code(s): D72.829 - Elevated white blood cell count, unspecified Status: Acute - Plan Left lower extremity cellulitis -Unknown etiology at this time. -Lower extremity ultrasound did not indicate any acute abnormality, only indicate superficial edema -X-ray of the left knee indicates anterior superficial soft tissue swelling -Venous Doppler lower extremity does not indicate any DVT -Blood cultures are negative for 4 day -Wound culture with MRSA -Continue vancomycin -Pain control with [place], morphine -CT scan with IV contrast of the left knee was performed which did indicate a superficial abscess formation. No intra-articular abnormalities. -Orthopedic surgeon was consulted, awaiting incision and drainage DVT prevention -Subcutaneous heparin
[2017-12-13] MEDS: Morphine Sulfate Inj 2 MG/ML Vial IV.PUSH PRN ×5 (02:04→20:30)
[2017-12-13] MEDS: Vancomycin Inj 1,750 MG in Sodium Chlor 0.9% Inj 500 ML IV.SIG SCH ×2 (02:31→13:00)
[2017-12-13] MEDS: Heparin - SQ 10,000 UNITS/ML Vial SQ SCH (08:40)
--- NOTE | 2017-12-13 10:50 | P.PNIM ---
Subjective Interval history: Follow up left knee cellulitis. Patient seen and examined, lying in bed comfortably in nad. Plan for I&D this afternoon with orthopedic surgeon. Pain well controlled. VSS. No chest pain or shortness of breath. Physical Exam Vital signs: Vital Signs 12/12/17 11:37 12/12/17 12:59 12/12/17 15:51 Temperature 98.3 F 98.3 F Pulse Rate 68 65 Respiratory Rate 16 18 16 Blood Pressure 123/78 123/72 Pulse Oximetry 96 96 12/12/17 20:00 12/13/17 00:00 12/13/17 01:59 Temperature 98.7 F 99.7 F H Pulse Rate 74 67 Respiratory Rate 18 18 18 Blood Pressure 157/87 H 143/84 H Pulse Oximetry 96 96 12/13/17 08:00 Temperature 99.2 F Pulse Rate 64 Respiratory Rate 16 Blood Pressure 144/75 H Pulse Oximetry 95 Intake & Output 12/12/17 12/13/17 12/13/17 18:59 06:59 18:59 Intake Total 515 / 515 517.5 / 517.5 Output Total 1000 / 1000 Balance 515 / 515 -482.5 / -482.5 Weight 95.4 kg Intake: IV 515 / 515 517.5 / 517.5 Vancomycin Inj 1,750 MG In NS 515 / 515 517.5 / 517.5 Inj 500 ML @ 250 mls/hr IV.SIG Q12H [facility] Rx#:[id number] Output: Urine 1000 / 1000 Other: # Voids 5 3 Date of Last Bowel Movement 12/11/17 Narrative: GENERAL: Well-developed, well-nourished, in no acute distress. alert and orientated HEENT: Head is normocephalic without any lesions or masses noted. Facial features are symmetric. Eyes: Pupils equal round reactive to light. Extraocular muscles are intact. Conjunctivae were clear. Oropharyngeal: Pharynx without any erythema edema. Tongue is midline without deviation. Buccal mucosa is moist without any masses or lesions NECK: Supple without any masses. Trachea midline no deviation. No JVD, no bruits are appreciated CARDIAC: Regular rhythm, regular rate. S1/S2 are heard. No murmurs gallops or rubs. LUNGS: Clear to auscultation bilaterally. No wheeze, rhonchi or rales. No use of accessory muscles on inspiration or expiration. ABDOMEN: Soft, nontender. Nondistended. Bowel sounds heard in all 4 quadrants. No organomegaly or masses. Negative rebound, negative guarding EXTREMITIES: No edema, pulses are equal bilaterally. No cyanosis or clubbing NEUROLOGY: Mood and affect appear appropriate. Cranial nerves II through XII grossly intact. Muscle strength 5/5 in upper and lower extremities bilaterally. Deep tendon reflexes are 2+ in upper and lower extremities bilaterally. LEFT LOWER EXTREMITY: The leg edema and leg erythema has significantly improved. No edema noted. Erythema right at patella, has improved. Minimal serous drainage. Results - Labs CBC & Chem 7: 12/10/17 06:41 12/09/17 06:22 Laboratory Results - last 24 hr 12/12/17 13:05 Vancomycin Trough 8.6 Microbiology 12/08/17 19:50 Blood - Peripheral Aerobic Blood Culture - Preliminary No growth in 4 days 12/08/17 19:50 Blood - Peripheral Anaerobic Blood Culture - Preliminary No growth in 4 days 12/08/17 20:00 Blood - Peripheral Aerobic Blood Culture - Preliminary No growth in 4 days 12/08/17 20:00 Blood - Peripheral Anaerobic Blood Culture - Preliminary No growth in 4 days Assessment and Plan - Assessment (1) Cellulitis of left leg Code(s): L03.116 - Cellulitis of left lower limb Status: Acute (2) Leukocytosis Code(s): D72.829 - Elevated white blood cell count, unspecified Status: Acute - Plan This is a 57-year-old male patient with: Left lower extremity cellulitis -Unknown etiology at this time. -Lower extremity ultrasound did not indicate any acute abnormality, only indicate superficial edema -X-ray of the left knee indicates anterior superficial soft tissue swelling -Venous Doppler lower extremity does not indicate any DVT -Blood cultures are negative for 4 day -Wound culture with MRSA -Continue vancomycin -Pain control with [place], morphine IV -CT scan with IV contrast of the left knee was performed which did indicate a superficial abscess formation. No intra-articular abnormalities. -Orthopedic surgeon was consulted, awaiting incision and drainage this afternoon around 4pm. -Further plan and ABX recs per ortho. DVT prevention -Subcutaneous heparin
[2017-12-13] MEDS ORDERED: fentaNYL Citrate Inj 100 MCG/2 ML Ampul ONE (16:17)
[2017-12-13] MEDS ORDERED: Neomycin/Polymyxin G.U. Irrigant 1 ML Ampul ONE (16:41)
[2017-12-13] MEDS ORDERED: Lidocaine PF 1% Inj 5 ML Syringe INFILTRATN ONE (16:57)
[2017-12-13] MEDS ORDERED: Ketorolac Inj 30 MG/ML (IVP) Vial IV.PUSH ONE (16:57)
[2017-12-13] MEDS ORDERED: Post-op Orders (for Pharmacy) OTHER STA (17:23)
--- NOTE | 2017-12-13 17:23 | P.BOP ---
Date of procedure: 12/13/17 Procedure: Irrigation and debridement left knee subcutaneous abscess Anesthesia: GETA Surgeon: Tosha York MD Estimated blood loss (mL): 25 Pathology: other (cultures to microbiology) Condition: stable Disposition: PACU
[2017-12-13] MEDS ORDERED: Morphine Sulfate Inj 8 MG/ML Vial ONE (17:36)
[2017-12-13] MEDS ORDERED: HYDROmorphone PF Inj 2 MG/ML Vial ONE (18:08)
[2017-12-14] MEDS: Morphine Sulfate Inj 2 MG/ML Vial IV.PUSH PRN ×2 (01:10→10:41)
[2017-12-14] MEDS: Vancomycin Inj 1,750 MG in Sodium Chlor 0.9% Inj 500 ML IV.SIG SCH ×2 (01:20→15:07)
--- NOTE | 2017-12-14 07:27 | P.OP ---
Date of procedure: 12/13/17 Procedure: Irrigation and debridement left knee subcutaneous abscess Anesthesia: GETA Surgeon: Tosha York MD Estimated blood loss (mL): 25 Pathology: other (culture sent to microbiology) Operation and Findings: Indications for procedure: Patient is a 57-year-old gentleman who presented to the emergency department with increased left knee pain and swelling. Patient underwent CT scan was done which showed a small subcutaneous abscess around the anterior aspect of the left knee. Options of management were discussed with the patient including continued nonoperative management with antibiotics versus operative intervention in the form of irrigation and debridement. At this time , patient is interested in pursuing surgical intervention. Risks, benefits, alternatives were discussed with the patient. He is consented for the above- mentioned procedure. Description of procedure: Patient was brought back to the operating room and placed supine on operating table with all bony processes well padded. General anesthesia then ensued. A tourniquet was placed on the patient's left upper thigh and the patient was prepped and draped in standard sterile fashion. Patient had been on scheduled antibiotics and therefore preoperative antibiotics were given. I then turned my attention to the anterior medial aspect of the patient's knee with it was palpable fluctuance and small amount of purulent drainage. The tourniquet was inflated. A small approximately 3 inch incision was made over the anteromedial aspect of the knee with sharp dissection through the skin and subcutaneous tissue. Immediately a subcutaneous abscess was encountered with gross purulence. This was thoroughly drained and cultured. The soft tissues were debrided with scalpel, curettes and rongeurs. This was irrigated with 3 L of normal saline with gentamicin. Another 3 L of normal saline were then used to irrigate the tissues. At this time, she was back to healthy bleeding tissue. A Jamin drain was placed and the subcutaneous tissue closed with PDS suture and the skin closed with nylon. Sterile dressings were then applied. Patient was awoken from general anesthesia without complication. Disposition: Patient can be weightbearing and range of motion as tolerated to the left lower extremity. Plan will be to keep the Jamin in place until postop day 2 when the Jamin can be removed and dressing changes started. Patient should continue antibiotics until cultures return. Likely he can then be switched to oral antibiotics at that time.
--- NOTE | 2017-12-14 09:34 | P.PNIM ---
Subjective Interval history: Follow-up left knee infection. Orthopedic performed I&D last evening. Did well. Will continue IV antibiotics await culture. Patient denies any acute complaints. Doing well. Pain controlled. Vital signs stable. Continue to monitor for improvement. Weightbearing as tolerated. Continue Jamin until tomorrow dressing change tomorrow. Physical Exam Vital signs: Vital Signs 12/13/17 12:03 12/13/17 12:58 12/13/17 15:40 Temperature 97.8 F 98.3 F Pulse Rate 60 68 Respiratory Rate 17 16 16 Blood Pressure 142/80 H 140/76 Pulse Oximetry 99 97 12/13/17 17:34 12/13/17 17:50 12/13/17 18:05 Temperature 98.5 F Pulse Rate 71 72 60 Respiratory Rate 14 16 16 Blood Pressure 140/76 117/75 115/64 Pulse Oximetry 96 97 96 12/13/17 18:22 12/13/17 20:00 12/14/17 00:00 Temperature 99.3 F 99.0 F Pulse Rate 67 68 68 Respiratory Rate 16 18 18 Blood Pressure 114/62 133/69 136/74 Pulse Oximetry 95 95 96 12/14/17 08:00 Temperature 99.3 F Pulse Rate 73 Respiratory Rate 20 Blood Pressure 128/70 Pulse Oximetry 96 Intake & Output 12/13/17 12/14/17 12/14/17 18:59 06:59 18:59 Intake Total 1367.5 / 1367.5 517.5 / 517.5 Output Total 600 / 600 Balance 1367.5 / 1367.5 -82.5 / -82.5 Weight 95 kg Intake: IV 517.5 / 517.5 517.5 / 517.5 Vancomycin Inj 1,750 MG In NS 517.5 / 517.5 517.5 / 517.5 Inj 500 ML @ 250 mls/hr IV.SIG Q12H [facility] Rx#:[id number] Anesthesia Amount 750 / 750 Other 100 / 100 Output: Urine 600 / 600 Other: # Voids 3 3 Narrative: GENERAL: Well-developed, well-nourished, in no acute distress. alert and orientated HEENT: Head is normocephalic without any lesions or masses noted. Facial features are symmetric. Eyes: Pupils equal round reactive to light. Extraocular muscles are intact. Conjunctivae were clear. Oropharyngeal: Pharynx without any erythema edema. Tongue is midline without deviation. Buccal mucosa is moist without any masses or lesions NECK: Supple without any masses. Trachea midline no deviation. No JVD, no bruits are appreciated CARDIAC: Regular rhythm, regular rate. S1/S2 are heard. No murmurs gallops or rubs. LUNGS: Clear to auscultation bilaterally. No wheeze, rhonchi or rales. No use of accessory muscles on inspiration or expiration. ABDOMEN: Soft, nontender. Nondistended. Bowel sounds heard in all 4 quadrants. No organomegaly or masses. Negative rebound, negative guarding EXTREMITIES: No edema, pulses are equal bilaterally. No cyanosis or clubbing NEUROLOGY: Mood and affect appear appropriate. Cranial nerves II through XII grossly intact. Muscle strength 5/5 in upper and lower extremities bilaterally. Deep tendon reflexes are 2+ in upper and lower extremities bilaterally. LEFT LOWER EXTREMITY: The leg edema and leg erythema has significantly improved. No edema noted. Dressing in place. Clean dry intact. Results - Labs CBC & Chem 7: 12/10/17 06:41 12/09/17 06:22 Microbiology 12/08/17 19:50 Blood - Peripheral Aerobic Blood Culture - Final No growth in 5 days 12/08/17 19:50 Blood - Peripheral Anaerobic Blood Culture - Final No growth in 5 days 12/08/17 20:00 Blood - Peripheral Aerobic Blood Culture - Final No growth in 5 days 12/08/17 20:00 Blood - Peripheral Anaerobic Blood Culture - Final No growth in 5 days Assessment and Plan - Assessment (1) Cellulitis of left leg Code(s): L03.116 - Cellulitis of left lower limb Status: Acute (2) Leukocytosis Code(s): D72.829 - Elevated white blood cell count, unspecified Status: Acute - Plan This is a 57-year-old male patient with: Left lower extremity cellulitis -Unknown etiology at this time. -Lower extremity ultrasound did not indicate any acute abnormality, only indicate superficial edema -X-ray of the left knee indicates anterior superficial soft tissue swelling -Venous Doppler lower extremity does not indicate any DVT -Blood cultures are negative to date -Wound culture with MRSA -Continue vancomycin -Pain control with [place], morphine IV -CT scan with IV contrast of the left knee was performed which did indicate a superficial abscess formation. No intra-articular abnormalities. -Orthopedic surgeon was consulted, status post incision and drainage yesterday afternoon by orthopedics on 12/14/17. -Continue IV antibiotics. Await wound culture. Dressing change tomorrow. Further antibiotics per culture growth. DVT prevention -Subcutaneous heparin Discharge Planning: Await wound culture growth for antibiotic recommendations outpatient.
[2017-12-14] MEDS ORDERED: Pharmacy Ordered Lab Info OTHER ONE (13:45)
[2017-12-15] MEDS ORDERED: Vancomycin Inj 2,250 MG in Sodium Chlor 0.9% Inj 500 ML IV.SIG SCH (02:00)
--- NOTE | 2017-12-15 09:31 | P.DS ---
Date of admission: 12/12/17 16:12 Primary care physician: Kaz Charles Anticipated date of discharge: 12/15/17 Brief History from admission: 57-year-old male with no chronic medical illnesses who presented to hospital because of left leg pain, swelling. Patient states 3 days ago he noticed like a pimple on his medial left patella and he popped it and cleaned with alcohol. The patient went to [place] the next day and he had very difficult time with standing up and walking after that and then he came to the emergency department yesterday. By the time he got emergency department has significant edema and erythema of the left lower extremity. Patient states that he was having progressive and severe pain in the left lower extremity which is causing him difficulty with ambulation. Patient states that he was having fever and chills at home. Patient update on day of discharge: Follow-up left knee abscess. Patient seen and examined, doing well and improved overnight. Pain is well controlled. Dressing change performed and Jamin drain pulled. Antibiotics and pain medications as written for discharge. Patient is stable at this time and ready for discharge. DS: Diagnosis - Discharge Diagnosis (1) Cellulitis of left leg Status: Acute (2) Leukocytosis Status: Acute DS: Medications - Discharge Medications Prescriptions: hydrocodone-acetaminophen [Shohola] 1 tab PO Q4H #8 tab sulfamethoxazole-trimethoprim [Bactrim DS] 1 tab PO BID 12 Days #24 tab DS: Summary Hospital Course: This is a 57-year-old male patient with left lower extremity cellulitis lower extremity ultrasound did not indicate any acute abnormality, only indicate superficial edema. X-ray of the left knee indicates anterior superficial soft tissue swelling. Venous Doppler lower extremity does not indicate any DVT. Blood cultures are negative to date. Wound culture with MRSA.patient was continued on vancomycin throughout hospitalization. Pain control with IV morphine as well as Shohola. CT scan with IV contrast of the left knee was performed which did indicate a superficial abscess formation. No intra- articular abnormalities. Orthopedic surgeon was consulted and an I&D was performed on 12/13/17. Dressing changed today on 12/15/17, Jamin drain removed. Wound is looking well with sutures in place. Minimal drainage. Spoke with orthopedics, okay to discharge home, Bactrim as ordered. Patient will follow-up in the office in 2 weeks to see orthopedic. Patient is stabilized and ready to go home today. - Time Spent with Patient Total time spent providing and/or coordinating discharge services: Greater than 30 minutes Exam Vital signs: Vital Signs 12/14/17 12:00 12/14/17 16:00 12/14/17 20:00 Temperature 99.7 F H 98.9 F 99.3 F Pulse Rate 62 69 58 L Respiratory Rate 20 20 16 Blood Pressure 137/70 143/75 H 146/85 H Pulse Oximetry 97 98 98 12/15/17 00:00 Temperature 97.7 F Pulse Rate 54 L Respiratory Rate 16 Blood Pressure 154/87 H Pulse Oximetry 95 Intake & Output 12/14/17 12/15/17 12/15/17 18:59 06:59 18:59 Intake Total 1040.0 / 1040.0 Balance 1040.0 / 1040.0 Weight 95.4 kg Intake: IV 1040.0 / 1040.0 Vancomycin Inj 2,250 MG In NS 1040.0 / 1040.0 Inj 500 ML @ 250 mls/hr IV.SIG Q12H MCKENNA Rx#:[id number] Other: Date of Last Bowel Movement 12/11/17 - Constitutional no acute distress - Routine HEENT Exam Head: Present: normocephalic Eye: Present: PERRL - Routine Neck Exam Present: supple - Routine Cardiovascular Exam Present: RRR - Routine Skin Exam Present: intact Comments: Left knee with surgical incision clean dry and intact, no erythema, minimal serous drainage. Sutures in place. Results Procedures completed during hospitalization: See above. Labs on day of discharge: Labs from last 24 hours 12/15/17 12/14/17 08:00 13:20 Creatinine 0.90 Estimated GFR 86 L Vancomycin Trough 9.0 Preliminary micro results at discharge 12/13/17 17:01 Wound Culture - Preliminary Abscess - Knee S. aureus MRSA - Impressions ITS Impressions Knee X-Ray 12/08/17 00:00 CONCLUSION: Anterior superficial soft tissue swelling. Chest X-Ray 12/08/17 19:32 CONCLUSION: No acute cardiopulmonary process. Lower Extremity Ultrasound 12/08/17 19:32 CONCLUSION: Superficial edema. Venous Doppler Study 12/09/17 14:41 CONCLUSION: The study is negative for lower extremity deep venous thrombosis. Knee CT 12/11/17 00:00 CONCLUSION: 1. Extensive anterior soft tissue edema overlying the patella and extensor mechanism with a small rim-enhancing abscess identified within the superficial soft tissues just inferior to the level of the patella. No evidence of foreign body. Discharge Plan - Discharge Disposition Patient Disposition: 01 Discharge Home - Discharge Condition Condition: Stable - Discharge Order Discharge Orders: Discharge Order (Routine); Ordered 12/15/17 Ordered By: Gita Mclean - Discharge Details Anticipated Discharge Date: 12/15/17 - Physicians Team Primary Care Provider: Kaz Charles Attending Provider: Osvaldo Krishnamurthy Other Providers: Tosha York MD
[2017-12-15 09:54] VITALS: BP 134/72; PULSE 66; RESP 14; TEMP 98.6; O2SAT 96
[2017-12-16] MEDS ORDERED: Pharmacy Ordered Lab Info OTHER ONE (13:45)
== END 2017-12-15 10:45 | disposition home or self-care (01) ==
LOC: PHEDA 19:12 → PHED 19:12 → PH3 12-09 00:06
PROVIDERS: ADMIT Internal Medicine; ATTEND Internal Medicine
PROC: DEBRIDE (2017-12-13 16:37)